=== PATIENT | female | born 1995 | race Caucasian/White ===

== ENCOUNTER → 2018-05-31 | Outpatient (CLI) | payer BC ==
[~2018-05-31] MED LIST: CATHETER FLUSH 10 ML SYR IV PRN
--- NOTE | 2018-05-31 20:03 | Diagnostic Imaging Report ---
INDICATION: Abdominal pain. TECHNIQUE: Acquisitions were acquired over the abdomen after the administration of 5.24 mCi of technetium 99m Choletec. After 60 minutes patient can of Ensure to evaluate the ejection fraction. FINDINGS: There is homogeneous uptake of isotope throughout the liver. There is significant accumulation within the gallbladder by 30 minutes. There is free flow of activity in the small bowel. The gallbladder ejection fraction is abnormally low at 17%. IMPRESSION: No evidence of cystic duct obstruction; however, there is an abnormally low ejection fraction of 17%. Dictated by: Dictated on workstation # [id number]
== END ==
LOC: CARD 12:01
PROVIDERS: ATTEND Family Medicine
DX: R10.11 Right upper quadrant pain (principal)
CPT/HCPCS: 78227

== ENCOUNTER 2018-06-05 10:40 | Outpatient (CLI) | payer BC ==
[~2018-06-05] VITALS: Ht 172.7 cm; Wt 91.6 kg
[2018-06-05] MEDS ORDERED: bcp PO (12:00)
[2018-06-06] MEDS ORDERED: ACHD5005 PO (12:22)
== END 2018-06-05 12:03 | disposition home or self-care (01) ==
LOC: PREOP 10:40
PROVIDERS: ATTEND Surgery
DX: Z01.818 Encounter for other preprocedural examination (principal)

== ENCOUNTER 2018-06-06 09:32 | Day surgery (SDC) | payer BC ==
[~2018-06-06] VITALS: Ht 172.7 cm; Wt 91.4 kg
[~2018-06-06 09:32] MED LIST changes: -CATHETER FLUSH 10 ML SYR IV PRN; +bcp PO
--- OUTSIDE RECORDS SUMMARY | 2018-06-06 09:35 | XMS REPORT ---
Author Author Fadumo Elizalde [facility] Address [address] [place], [place] [id number] Care Team Providers Care Kiln Car Unloader Name Role Phone Fadumo Elizalde PCP Unavailable Allergies and Adverse Reactions Name Reaction Notes PENICILLINS Plan of Treatment Planned Activity Comments Planned Date Planned Time Plan/Goal TSH 10/04/2016 12:00 AM Free thyroxine (FT4) measurement 10/04/2016 12:00 AM T3 TOTAL 10/04/2016 12:00 AM Medications Active Name Start Date Estimated Completion Date SIG Comments Generess Fe 0.8mg-25mcg(24) and 75 mg (4) oral tablet,chewable 04/07/201603/09 chew 1 tablet by oral route once daily for 84 days Name Start Date Expiration Date SIG Comments Zithromax Z-Lio 250 mg oral tablet 07/21/2015 07/25/2015 Take 2 tablets the first day followed by one tablet daily. Discontinued Name Start Date Discontinued Date SIG Comments Generess Fe 0.8mg-25mcg(24) and 75 mg (4) oral tablet,chewable 03/05/2014 Problem List Not available. Vital Signs Date Time BP-Sys(mm[Hg] BP-Rosa(mm[Hg]) HR(bpm) RR(rpm) Temp WT HT HC BMI BSA BMI Percentile O2 Sat(%) 03/05/2014 2:48:00 PM 120 mmHg 60 mmHg 70 bpm 18 rpm 99.6 F 124 lbs 68 in 18.85 kg/m2 1.64 m2 15.4 % Social History Name Description Comments Tobacco Never smoker No history of foreign travel History of Procedures Date Ordered Description Order Status 11/24/2015 12:00 AM ASSAY THYROID STIM HORMONE Reviewed 11/24/2015 12:00 AM ASSAY OF FREE THYROXINE Reviewed 11/24/2015 12:00 AM ASSAY TRIIODOTHYRONINE (T3) Reviewed 11/24/2015 12:00 AM THYROGLOBULIN ANTIBODY Reviewed 03/05/2014 12:00 AM CHLAMYDIA CULTURE Reviewed 03/05/2014 12:00 AM N.GONORRHOEAE DNA AMP PROB Reviewed 03/05/2014 12:00 AM ASSAY THYROID STIM HORMONE Reviewed 03/05/2014 12:00 AM COMPLETE CBC AUTOMATED Reviewed 03/05/2014 12:00 AM FREE ASSAY (FT-3) Reviewed 03/05/2014 12:00 AM ASSAY OF TOTAL THYROXINE Reviewed Results Summary Date and Description Results 03/05/2014 3:45 PM Triiodothyronine,Free,Serum 3.70 pg/mLTSH 1.10 uIU/mLT4 9.20 ug/dLWBC 6.1 RBC 4.41 HGB 13.60 g/dLHCT 37.80 %MCV 86.0 fLMCH 30.80 pgMCHC 36.0 g/dLRDW SD 40 MPV 8.90 fLPLT 288 History Of Immunizations Not available. History of Past Illness Name Date of Onset Comments *No known medical problems Routine gynecological examination Mar 05 2014 2:51PM Contraception, Oral Prescription Mar 05 2014 2:51PM Contraceptive Counseling Mar 05 2014 2:51PM Fatigue Mar 05 2014 2:51PM Fatigue Nov 24 2015 9:33AM Irregular intermenstrual bleeding Nov 24 2015 9:33AM Fatigue Oct 04 2016 10:04AM Payers Insurance Name Company Name Plan Name Plan Number Policy Number Policy Group Number Start Date [facility] [id number] N/A History of Encounters Visit Date Visit Type Provider 03/05/2014 Office visit 03/05/2014 Office visit Fadumo Elizalde CLOTH PATTERN MAKER
--- OUTSIDE RECORDS SUMMARY | 2018-06-06 09:36 | XMS REPORT ---
Author Author Fadumo Elizalde [facility] Address [address] [place], [place] [phone] Care Team Providers Care Manager Interventional Name Role Phone Fadumo Elizalde PCP Unavailable Allergies and Adverse Reactions Name Reaction Notes PENICILLINS Plan of Treatment Planned Activity Comments Planned Date Planned Time Plan/Goal ASSAY THYROID STIM HORMONE 11/24/2015 12:00 AM ASSAY OF FREE THYROXINE 11/24/2015 12:00 AM ASSAY TRIIODOTHYRONINE (T3) 11/24/2015 12:00 AM THYROGLOBULIN ANTIBODY 11/24/2015 12:00 AM Medications Active Name Start Date Estimated Completion Date SIG Comments Generess Fe 0.8mg-25mcg(24) and 75 mg (4) oral tablet,chewable 03/11/201503/2016 chew 1 tablet by oral route once [...] of Procedures Date Ordered Description Order Status 03/05/2014 12:00 AM CHLAMYDIA CULTURE Returned 03/05/2014 12:00 AM N.GONORRHOEAE DNA AMP PROB Returned 03/05/2014 12:00 AM ASSAY THYROID STIM HORMONE Returned 03/05/2014 12:00 AM COMPLETE CBC AUTOMATED Returned 03/05/2014 12:00 AM FREE ASSAY (FT-3) Returned 03/05/2014 12:00 AM ASSAY OF TOTAL THYROXINE Returned Results Summary Data and Description Results 03/05/2014 3:45 PM Triiodothyronine,Free,Serum 3.70 pg/mLTSH 1.10 uIU/mLT4 9.20 ug/dLWBC 6.1 RBC 4.41 HGB 13.60 g/dLHCT 37.80 %MCV 86.0 fLMCH 30.80 pgMCHC 36.0 g/dLMPV 8.90 fLPLT 288 History Of Immunizations Not available. History of Past Illness Name Date of Onset Comments *No known medical problems Routine gynecological examination Mar 05 2014 2:51PM Contraception, Oral Prescription Mar 05 2014 2:51PM Contraceptive Counseling Mar 05 2014 2:51PM Fatigue Mar 05 2014 2:51PM Fatigue Nov 24 2015 9:33AM Irregular intermenstrual bleeding Nov 24 2015 9:33AM Payers Insurance Name Company Name Plan Name Plan Number Policy Number Policy Group Number Start Date [facility] [id number] N/A History of Encounters Visit Date Visit Type Provider 03/05/2014 Office visit 03/05/2014 Office visit Fadumo Elizalde APRN
--- OUTSIDE RECORDS SUMMARY | 2018-06-06 09:36 | XMS REPORT ---
Author Author Fadumo Elizalde [facility] Address [address] [place], [place] [id number] Care Team Providers Care [place] Miner Blasting Name Role Phone Fadumo Elizalde PCP Unavailable [...] Policy Number Policy Group Number Start Date [facility] [id number] N/A History of Encounters Visit Date Visit Type Provider 03/05/2014 Office visit 03/05/2014 Office visit Fadumo Elizalde APRN
--- OUTSIDE RECORDS SUMMARY | 2018-06-06 09:36 | XMS REPORT | Continuity of Care Document ---
Author Author [facility] Organization [facility] Address Unknown Phone Unavailable Allergies Active Description Code Type Severity Reaction Onset Reported/Identified Relationship to Patient Clinical Status Yes PENICILLINS UNKNOWN UNKNOWN Yes No Allergy Information Available [id number] Drug Allergy Unknown N/A 2018 Yes Penicillins [id number] Drug Allergy Unknown RASH 06/05/2018 Medications Medication Packaging Start Date Stop Date Route Dosage Sig ONDANSETRON VIAL INJ 4 MG/2CC (ZOFRAN 2CC VIAL) MG 05/18/2018 05/18/2018 PRN ONCE FENTANYL INJ 100 MCG/2CC VIAL MCG 05/19/2018 05/19/2018 ONCE&0012 NORMAL SALINE 1000CC IV BAG INJ 0.9 % (NS 1000CC IV BAG) ml 05/19/2018 06/03/2018 CONTINUOUSEVERY 0 Hour SUCRALFATE SUSP 1 GM/10CC (CARAFATE SUSP) GM 05/19/2018 05/25/2018 Q6H&0600,1200,1800,2359 FAMOTIDINE TAB 20 MG (PEPCID) MG 05/25/2018 BID&0800,2000 Problems Date Dx Coded Attending Type Code Diagnosis Diagnosed By 05/18/2018 Marlen Kwok 789.01 ABDOMINAL PAIN, RIGHT UPPER QUADRANT 05/18/2018 Marlen Kwok R10.11 RIGHT UPPER QUADRANT PAIN 05/18/2018 Marlen Kwok 789.01 ABDOMINAL PAIN, RIGHT UPPER QUADRANT 05/18/2018 Marlen Kwok R10.11 RIGHT UPPER QUADRANT PAIN 05/19/2018 SANDY ROY 535.0 ACUTE GASTRITIS 05/19/2018 SANDY ROY 535.00 ACUTE GASTRITIS, WITHOUT MENTION OF HEMORRHAGE 05/19/2018 SANDY ROY A09 INFECTIOUS GASTROENTERITIS AND COLITIS, UNSPECIFIED 05/19/2018 SANDY ROY K29.00 ACUTE GASTRITIS WITHOUT BLEEDING 06/01/2018 MARLEN KWOK MD, Ot R10.11 RIGHT UPPER QUADRANT PAIN Procedures There is no data. Results Test Result Range Urinalysis - 04/07/17 16:29 Icotest N/A Negative Urine Crystals Amorphous material: moderate/HPF Urine Volume Urine Volume Sufficient (10mL) Urine-Appearance Clear Clear Urine-Bacteria 3+ Urine-Bilirubin Negative Negative Urine-Blood Trace-lysed Negative Urine-Color Yellow Colorless-Lt. Yellow Urine-Epithelial Cells 5-10/HPF Urine-Glucose Negative Negative Urine-Ketones Negative Negative Urine-Leukocytes Trace Negative Urine-Nitrite Negative Negative Urine-Other Urine Saved if Culture Needed (48hrs from time of collection) Urine-pH 6.0 5-8.5 Urine-Protein Negative Negative Urine-RBC 0-2/HPF Urine-Specific [place] 1.020 1.000-1.030 Urine-WBC 2-5/HPF Urobilinogen 0.2 0.2-1.0 Comprehensive Metabolic Panel - 05/18/18 14:23 Albumin 4.9 g/dL 3.6-5.1 ALP 97 U/L 35-130 ALT 97 U/L 6-45 Anion Gap 14 6-14 AST 82 U/L 2-40 BUN 9 mg/dL 5-25 Calcium 10.1 mg/dL 8.3-10.4 Chloride 106 mmol/L 95-114 CO2 24 mEq/L 22-33 Creat 0.85 mg/dL 0.50-1.50 eGFR 83 mL/min/1.73m2 >59 Globulin 2.4 g/dL 2.3-3.5 Glucose 86 mg/dL 70-110 Osmo 287 280-295 Potassium 4.2 mmol/L 3.5-5.3 Sodium 140 mmol/L 134-148 TBil 0.9 mg/dL 0.2-1.2 TP 7.3 g/dL 6.0-8.3 Urinalysis - 05/18/18 14:49 Icotest N/A Negative Urine Volume Urine Volume Sufficient (10mL) Urine-Appearance Clear Clear Urine-Bacteria Trace Urine-Bilirubin Negative Negative Urine-Blood Trace-intact Negative Urine-Color Yellow Colorless-Lt. Yellow Urine-Epithelial Cells 0-5/HPF Urine-Glucose Negative Negative Urine-Ketones 1+ Negative Urine-Leukocytes Negative Negative Urine-Nitrite Negative Negative Urine-Other Urine Saved if Culture Needed (48hrs from time of collection) Urine-pH 5.5 5-8.5 Urine-Protein Negative Negative Urine-RBC Rare/HPF Urine-Specific [place] >=1.030 1.000-1.030 Urine-WBC Negative Urobilinogen 0.2 E.U./dL 0.2-1.0 Amylase - 05/18/18 23:55 Amylase 54 U/L 20-100 Lipase - 05/18/18 23:55 Lipase 25 U/L 7-59 Quik Strep - 05/19/18 00:30 Quik Strep Negative - confirmation culture set. Negative Encounters ACCT No. Visit Date/Time Discharge Status Pt. Type Provider Facility Loc./Unit Complaint [id number] 03/05/2014 15:37:16 03/05/2014 23:59:59 CLS Outpatient Fadumo Elizalde [id number] 06/05/2018 10:40:00 06/05/2018 12:03:00 DIS Outpatient HERNAN ANDERSON MD Via [facility] [place] PREOP ROBO ANN MARIE [id number] 05/31/2018 12:01:00 05/31/2018 23:59:59 CLS Outpatient MARLEN KWOK MD Via [facility] [place] CARD RUQ PAIN [id number] 06/06/2018 11:00:00 PEN Preadmit HERNAN ANDERSON MD Via [facility] GALLBLADDER DYSKENESIA [id number] 05/18/2018 23:35:00 05/19/2018 01:45:00 DIS Outpatient [facility] ER [id number] 05/18/2018 14:19:00 05/18/2018 23:59:00 DIS Outpatient Marlen Kwok [id number] 04/07/2017 16:27:00 04/07/2017 23:59:00 DIS Outpatient Marlen Kwok [id number] 05/19/2018 00:13:14 Document Registration
[2018-06-06] MEDS ORDERED: VANCOMYCIN INJECTION 1,000 MG in NS (IVPB) 250 ML IV ONE (09:45)
[2018-06-06] MEDS ORDERED: LACTATED RINGERS 1,000 ML IV PRN (09:50)
[2018-06-06] MEDS ORDERED: FAMOTIDINE 20MG/2ML IV (PEPCID) IV ONE (10:00)
[2018-06-06] MEDS ORDERED: MIDAZOLAM 2 MG/2 ML (VERSED) VIAL IV ONE (10:00)
[2018-06-06 10:05] VITALS: BP 137/89
[2018-06-06] MEDS ORDERED: BUP/EPI 0.5% 1:200,000 (SENSORCAINE) 30 ML VIAL ONE (10:41)
[2018-06-06] MEDS ORDERED: ROCURONIUM 10 MG/ML 5 ML SYRINGE IV ONE (10:42)
[2018-06-06] MEDS ORDERED: fentaNYL INJECTION 100 MCG/2 ML AMP ONE ×3 (10:42→12:35)
[2018-06-06] MEDS ORDERED: SEVOFLURANE (ULTANE) 15 ML INHAL SOLN ONE ×5 (10:42→12:33)
[2018-06-06] MEDS ORDERED: proPOfol 200 MG/20 ML (DIPRIVAN) VIAL IV ONE (10:42)
--- NOTE | 2018-06-06 11:02 | Progress Note-Pre Operative ---
Pre-Operative Progress Note H&P Reviewed The H&P was reviewed, patient examined and no changes noted. Date Seen by Provider: Jun 04, 2018 Time Seen by Provider: 15:00 Date H&P Reviewed: Jun 06, 2018 Time H&P Reviewed: 11:02 Pre-Operative Diagnosis: gallbladder dyskinesia HERNAN ANDERSON MD Jun 06, 2018 11:02
[2018-06-06] MEDS ORDERED: ONDANSETRON 4 MG/2 ML (SDV) Z0FRAN ONE (11:58)
[2018-06-06] MEDS ORDERED: DEXAMETHASONE 10 MG/ML (DECADRON) 1 ML VIAL ONE (11:58)
[2018-06-06] MEDS ORDERED: LIDOCAINE PF 2% 5 ML (XYLOCAINE) VIAL ONE (11:59)
[2018-06-06] MEDS ORDERED: GLYCOPYRROLATE 0.2 MG/ML (ROBINUL) 2 ML VIAL ONE ×2 (12:03→12:07)
[2018-06-06] MEDS ORDERED: NEOSTIGMINE 1 MG/ML 5 ML SYRINGE ONE (12:03)
--- NOTE | 2018-06-06 12:21 | Operative Report ---
Operative Report Date of Procedure/Surgery Jun 06, 2018 Surgeon (s) HERNAN ANDERSON MD Deburrer (s): N/A Post-Operative Diagnosis same Procedure Performed robotic-assisted cholecystectomy Description of Procedure Anesthesia Type: General Estimated blood loss (mL): minimal Specimen(s) collected/removed gallbladder Description of the Procedure Indication for the procedure: This lady presented with severe symptoms of biliary colic due to chronic, acalculous cholecystitis and dyskinesia of the gallbladder with a much reduced ejection fraction. She was therefore offered cholecystectomy using minimally invasive technique with robotic assistance. Informed consent was obtained after reviewing the operative details and complications of wound infection and bile leak. Description of the procedure: She was placed supine on the operative table and general anesthesia induced. A gram of vancomycin was administered intravenously as prophylaxis at sequential compression devices were placed around her legs, to minimize the risk of venous thrombosis. Abdomen was prepared and draped in the usual sterile manner. Pneumoperitoneum was established using a Veress needle introduced along the subumbilical region. Intra-abdominal pressure was maintained at 15 mmHg, using carbon dioxide insufflation. A 12 mm trocar was placed and anatomy visualized using the 30, 3 -dimensional laparoscope, associated da Tammie system. Under direct view, I placed an 8 mm trocar over each side of the abdomen, followed by a 5 mm trocar over the left subcostal margin. The patient was then turned in reverse Trendelenburg position and the robotic system docked in place. The fundus of the gallbladder was retracted cephalad and the infundibulum grasped with Cadiere forceps. Peritoneum overlying Calot's triangle was incised using hook cautery, delineating the cystic duct and artery. Both were controlled using locking clips. Cholecystectomy was then completed using the hook cautery. The gallbladder was then placed in an Endo Catch bag and removed via the subumbilical trocar site. The fascia over this incision was closed using #1 Vicryl, using the Darrick Elizalde device, under direct laparoscopic view. Skin incisions were closed using 4-0 Vicryl, in a subcuticular fashion. 0.5 percent Marcaine with epinephrine was infiltrated along the incisions, both preemptively and at the conclusion of the operation. She tolerated the procedure well, was extubated in the operative room and taken to the recovery room in a stable condition. Findings of the Procedure see operative report Allergies and Home Medications Allergies Coded Allergies: Penicillins (Verified Allergy, Unknown, RASH, 06/05/18) Home Medications [bcp] , 1 TAB PO DAILY, (Reported) Patient Home Medication List Home Medication List Reviewed: Yes HERNAN ANDERSON MD Jun 06, 2018 12:21
[2018-06-06] MEDS ORDERED: ACHD5005 PO (12:22)
--- NOTE | 2018-06-06 12:24 | Discharge Inst-Simple/Standard ---
Discharge Inst-Standard Discharge Medications New, Converted or Re-Newed RX: RX on Chart Patient Instructions/Follow Up Plan of Care/Instructions/FU: Band-Aids off in 48 hours. Incentive spirometry. Follow-up in 3 weeks Activity as Tolerated: Yes Discharge Diet: No Restrictions HERNAN ANDERSON MD Jun 06, 2018 12:24
[2018-06-06] MEDS ORDERED: MEPERIDINE (DEMEROL) INJ 50 MG/ML IVP ONE (12:45)
[2018-06-06] MEDS ORDERED: fentaNYL INJECTION 100 MCG/2 ML AMP IVP ONE (12:45)
[2018-06-06] MEDS ORDERED: ONDANSETRON 4 MG/2 ML (SDV) Z0FRAN IVP PRN (12:45)
[2018-06-06] MEDS ORDERED: PROMETHAZINE INJ 25 MG/ML (PHENERGAN) AMP IVP ONE (12:45)
[2018-06-06] MEDS ORDERED: KETOROLAC 30 MG/ML VIAL ONE (12:57)
[2018-06-06] MEDS ORDERED: HYDROmorphone 2 MG/ML VIAL (DILAUDID) ONE (12:57)
[2018-06-06] MEDS ORDERED: HYDROmorphone 2 MG/ML VIAL (DILAUDID) IV ONE (13:00)
[2018-06-06] MEDS ORDERED: KETOROLAC 30 MG/ML VIAL IVP ONE (13:00)
[2018-06-06 13:34] VITALS: BP 122/79
[2018-06-06] MEDS ORDERED: HYDROcodone/APAP 5 MG/325 MG (LORTAB) TAB ONE (13:49)
[2018-06-06 14:04] VITALS: BP 139/85
[2018-06-06] MEDS ORDERED: HYDROcodone/APAP 5 MG/325 MG (LORTAB) TAB PO ONE (14:15)
--- NOTE | 2018-06-06 14:19 | Anesthesia-General Post-Op ---
General Patient Condition Mental Status/LOC: Same as Preop Cardiovascular: Satisfactory Nausea/Vomiting: Absent Respiratory: Satisfactory Pain: Controlled Complications: Absent Post Op Complications Complications None Follow Up Care/Instructions Patient Instructions None needed. Anesthesia/Patient Condition Patient Condition Patient is doing well, no complaints, stable vital signs, no apparent adverse anesthesia problems. No complications reported per nursing. D/C home per [facility] Criteria: Yes BRANT ANDRADE CRNA Jun 06, 2018 14:19
[2018-06-06 14:34] VITALS: BP 128/78
[2018-06-06 14:45] VITALS: BP 128/78
== END 2018-06-06 14:45 | disposition home or self-care (01) ==
LOC: SDC 09:32
PROVIDERS: ATTEND Surgery
DX: K81.1 Chronic cholecystitis (principal); K82.8 Other specified diseases of gallbladder; K21.9 Gastro-esophageal reflux disease without esophagitis; Z11.2 Encounter for screening for other bacterial diseases; Z88.0 Allergy status to penicillin
CPT/HCPCS: 84703; 87081; 88304

== ENCOUNTER 2018-10-23 05:31 | Outpatient (CLI) | payer BC ==
[~2018-10-23] VITALS: Ht 172.7 cm; Wt 86.4 kg
[~2018-10-23 05:31] MED LIST changes: +ACHD5005 PO
[2018-10-24] MEDS ORDERED: IBUP-1773 PO (07:07)
[2018-10-24] MEDS ORDERED: HYDR-4226 PO (07:07)
== END 2018-10-23 11:05 | disposition home or self-care (01) ==
LOC: PREOP 05:31
PROVIDERS: ATTEND Obstetrics & Gynecology
DX: Z01.818 Encounter for other preprocedural examination (principal)

== ENCOUNTER 2018-10-24 06:06 | Day surgery (SDC) | payer BC ==
[~2018-10-24] VITALS: Ht 172.7 cm; Wt 84.5 kg
[2018-10-24] VITALS (11 sets, daily range): BP systolic 90–131; BP diastolic 49–84
--- OUTSIDE RECORDS SUMMARY | 2018-10-24 06:10 | XMS REPORT | Continuity of Care Document ---
Author Organization Unknown Address Unknown Allergies Active Description Code Type Severity Reaction Onset Reported/Identified Relationship to Patient Clinical Status Yes PENICILLINS UNKNOWN UNKNOWN Yes No Allergy Information Available [id number] Drug Allergy Unknown N/A 05/31/2018 Yes Penicillins [id number] Drug Allergy Unknown RASH 06/05/2018 Medications Medication [...] Q6H&0600,1200,1800,2359 FAMOTIDINE TAB 20 MG (PEPCID) MG 05/19/2018 05/25/2018 BID&0800,2000 Problems Date Dx Coded Attending [...] GASTRITIS, WITHOUT MENTION OF HEMORRHAGE 05/19/2018 SANDY RYO A09 INFECTIOUS GASTROENTERITIS AND COLITIS, UNSPECIFIED 05/19/2018 SANDY ROY K29.00 ACUTE GASTRITIS WITHOUT BLEEDING 06/01/2018 RISSA GALE, MARLEN Barajas Ot R10.11 RIGHT UPPER QUADRANT PAIN 06/05/2018 HERNAN ANDERSON MD Ot Z01.818 ENCOUNTER FOR OTHER PREPROCEDURAL EXAMIN 06/06/2018 HERNAN ANDERSON MD Ot K21.9 GASTRO-ESOPHAGEAL REFLUX DISEASE WITHOUT 06/06/2018 HERNAN ANDERSON MD Ot K81.1 CHRONIC CHOLECYSTITIS 06/06/2018 HERNAN ANDERSON MD Ot K82.8 OTHER SPECIFIED DISEASES OF GALLBLADDER 06/06/2018 HERNAN ANDERSON MD Ot Z11.2 ENCOUNTER FOR SCREENING FOR OTHER BACTER 06/06/2018 HERNAN ANDERSON MD Ot Z88.0 ALLERGY STATUS TO PENICILLIN 06/12/2018 HERNAN ANDERSON MD, Ot K21.9 GASTRO-ESOPHAGEAL REFLUX DISEASE WITHOUT 06/12/2018 HERNAN ANDERSON MD, Ot K81.1 CHRONIC CHOLECYSTITIS 06/12/2018 HERNAN ANDERSON MD Ot K82.8 OTHER SPECIFIED DISEASES OF GALLBLADDER 06/12/2018 HERNAN ANDERSON MD, Ot Z11.2 ENCOUNTER FOR SCREENING FOR OTHER BACTER 06/12/2018 HERNAN ANDERSON MD, Ot Z88.0 ALLERGY STATUS TO PENICILLIN 06/13/2018 RISSA GALE, MARLEN Barajas Ot R10.11 RIGHT UPPER QUADRANT PAIN Procedures [...] 5-8.5 Urine-Protein Negative Negative Urine-RBC 0-2/HPF Urine-Specific [place] 1.020 1.000-1.030 Urine-WBC 2-5/HPF Urobilinogen 0.2 0.2-1.0 [...] 5-8.5 Urine-Protein Negative Negative Urine-RBC Rare/HPF Urine-Specific [place] >=1.030 1.000-1.030 Urine-WBC Negative Urobilinogen 0.2 E.U./dL 0.2-1.0 Amylase - 05/18/18 23:55 Amylase 54 U/L 20-100 Lipase - 05/18/18 23:55 Lipase 25 U/L 7-59 Quik Strep - 05/19/18 00:30 Quik Strep Negative - confirmation culture set. Negative Urine beta human chorionic gonadotropin (hCG) measurement - 06/06/18 09:41 Urine beta human chorionic gonadotropin (hCG) measurement NEGATIVE NEGATIVE Methicillin resistant Staphylococcus aureus (MRSA) screening culture - 06/06/18 10:08 Methicillin resistant Staphylococcus aureus (MRSA) screening culture NEG NRG Encounters ACCT No. Visit Date/Time Discharge Status Pt. Type Provider Facility Loc./Unit Complaint [id number] 03/05/2014 15:37:16 03/05/2014 23:59:59 CLS Outpatient Fadumo Elizalde [id number] 06/06/2018 09:32:00 06/06/2018 14:45:00 DIS Outpatient MONICA GALE, HERNAN Fraire [facility] GALLBLADDER DYSKENESIA [id number] 06/05/2018 10:40:00 06/05/2018 12:03:00 DIS Outpatient MONICA GALE, HERNAN Fraire [facility] PREOP ROBO ANN MARIE [id number] 05/31/2018 12:01:00 05/31/2018 23:59:59 CLS Outpatient MARLEN KWOK MD [facility] CARD RUQ PAIN [id number] 10/24/2018 07:30:00 PEN Preadmit MARCUS DO, ALEXANDRE S [facility] [place] [id number] 05/18/2018 23:35:00 05/19/2018 01:45:00 DIS Outpatient [facility] ER [id number] 05/18/2018 14:19:00 05/18/2018 23:59:00 DIS Outpatient Marlen Kwok [id number] 04/07/2017 16:27:00 04/07/2017 23:59:00 DIS Outpatient Marlen Kwok [id number] 05/19/2018 00:13:14 Document Registration
[2018-10-24] MEDS: LACTATED RINGERS 1,000 ML IV PRN ×2 (06:39→07:34)
[2018-10-24] MEDS ORDERED: ONDANSETRON 4 MG/2 ML (SDV) Z0FRAN ONE (06:42)
[2018-10-24] MEDS ORDERED: fentaNYL INJECTION 100 MCG/2 ML AMP ONE ×2 (06:42→07:38)
[2018-10-24] MEDS ORDERED: proPOfol 200 MG/20 ML (DIPRIVAN) VIAL IV ONE (06:42)
[2018-10-24] MEDS ORDERED: DEXAMETHASONE 10 MG/ML (DECADRON) 1 ML VIAL ONE (06:42)
[2018-10-24] MEDS ORDERED: LIDOCAINE PF 2% 5 ML (XYLOCAINE) VIAL ONE (06:42)
[2018-10-24 06:45] LABS: BASOPHILS % (AUTO) 0 % (0-10); EOSINOPHILS # (AUTO) 0.2 10^3/uL (0.0-0.3); EOSINOPHILS % (AUTO) 2 % (0-10); HEMATOCRIT 34 % (35-52); HEMOGLOBIN 11.5 G/DL (11.5-16.0); LYMPHOCYTES # (AUTO) 4.1 X 10^3 (1.0-4.0); LYMPHOCYTES % (AUTO) 41 % (12-44); MEAN CORPUSCULAR HEMOGLOBIN 29 PG (25-34); MEAN CORPUSCULAR HGB CONC 34 G/DL (32-36); MEAN CORPUSCULAR VOLUME 84 FL (80-99); MEAN PLATELET VOLUME 9.3 FL (7.4-10.4); MONOCYTES # (AUTO) 0.6 X 10^3 (0.0-1.0); MONOCYTES % (AUTO) 6 % (0-12); NEUTROPHILS # (AUTO) 5.2 X 10^3 (1.8-7.8); NEUTROPHILS % (AUTO) 52 % (42-75); PLATELET COUNT 350 10^3/uL (130-400); RED CELL DISTRIBUTION WIDTH 12.3 % (10.0-14.5); WHITE BLOOD COUNT 10.1 10^3/uL (4.3-11.0)
[2018-10-24] MEDS ORDERED: SEVOFLURANE (ULTANE) 15 ML INHAL SOLN ONE ×2 (06:45→08:13)
[2018-10-24] MEDS ORDERED: MIDAZOLAM 2 MG/2 ML (VERSED) VIAL IV ONE (06:45)
[2018-10-24] MEDS ORDERED: MIDAZOLAM 2 MG/2 ML (VERSED) VIAL ONE (06:52)
[2018-10-24] MEDS ORDERED: D5 LR IV SOLUTION 1,000 ML IV SCH (07:04)
--- NOTE | 2018-10-24 07:05 | Progress Note-Pre Operative ---
Pre-Operative Progress Note H&P Reviewed The H&P was reviewed, patient examined and no changes noted. Date Seen by Provider: Oct 24, 2018 Time Seen by Provider: 07:00 Date H&P Reviewed: Oct 24, 2018 Time H&P Reviewed: 07:00 Pre-Operative Diagnosis: Missed ALEXANDRE REZA DO Oct 24, 2018 07:05
[2018-10-24] MEDS ORDERED: HYDR-4226 PO (07:07)
[2018-10-24] MEDS ORDERED: IBUP-1773 PO (07:07)
--- NOTE | 2018-10-24 07:08 | Discharge Inst-Women's Service ---
Discharge Inst-Women's Serv Depart Medication/Instructions New, Converted or Re-Newed RX: RX on Chart Consults/Follow Up Additional Follow Up: Yes Orders/Referrals Dr. Velazquez in 2 weeks Activity Activity: Activity as Tolerated Driving Instructions: You May Drive NO SMOKING: NO SMOKING Nothing Inside Vagina: No Douching, No [place], No Tampons Diet Discharge Diet: No Restrictions Symptoms to Report to : Bleeding Excessive, Pain Increased, Fever Over 101 Degrees F, Vaginal Bleeding Increase, Questions/Concerns For Any Problems or Questions: Contact Your Physician ALEXANDRE VELAZQUEZ DO Oct 24, 2018 07:08
[2018-10-24] MEDS ORDERED: KETOROLAC 30 MG/ML VIAL IVP ONE (07:15)
[2018-10-24] MEDS ORDERED: ONDANSETRON 4 MG/2 ML (SDV) Z0FRAN IVP PRN ×2 (07:15→08:15)
[2018-10-24] MEDS ORDERED: HYDROcodone/APAP 5 MG/325 MG (LORTAB) TAB PO PRN (07:15)
[2018-10-24] MEDS ORDERED: PROMETHAZINE INJ 25 MG/ML (PHENERGAN) AMP ONE (08:09)
[2018-10-24] MEDS ORDERED: HYDROmorphone 2 MG/ML VIAL (DILAUDID) IV ONE (08:15)
[2018-10-24] MEDS ORDERED: morphine INJ 10 MG/ML 1ML (SYR OR VIAL) IVP ONE (08:15)
[2018-10-24] MEDS ORDERED: PROMETHAZINE INJ 25 MG/ML (PHENERGAN) AMP IVP ONE (09:30)
--- NOTE | 2018-10-24 10:55 | Anesthesia-General Post-Op ---
General Patient Condition Mental Status/LOC: Same as Preop Cardiovascular: Satisfactory Nausea/Vomiting: Absent Respiratory: Satisfactory Pain: Controlled Complications: Absent Post Op Complications Complications None Follow Up Care/Instructions Patient Instructions None needed. Anesthesia/Patient Condition Patient Condition Patient is doing well, no complaints, stable vital signs, no apparent adverse anesthesia problems. No complications reported per nursing. APRIL MARIE CRNA Oct 24, 2018 10:55
--- NOTE | 2018-10-24 13:19 | OPERATIVE REPORT ---
DATE OF SERVICE: 10/24/2018 PREOPERATIVE DIAGNOSIS: A 23-year-old female with missed AB. POSTOPERATIVE DIAGNOSIS: A 23-year-old female with missed AB. PROCEDURE: Suction D and C. SURGEON: Alexandre Velazquez DO ANESTHESIA: General endotracheal. ESTIMATED BLOOD LOSS: 200 mL. URINE OUTPUT: 200 mL clear drained at the start of the procedure. FLUIDS: 1100 mL lactated Ringer's solution. FINDINGS: A small to moderate amount of products of conception, grossly normal appearing external female genitalia. SPECIMEN SENT: Products of conception. INDICATION FOR PROCEDURE: This is a 23-year-old female, who is the patient that had sought care in my office and was found to have a missed AB with a suspected blighted ovum. There was an inappropriate drop and quantitative beta hCG progesterone level was also below 5. Due to that as well as a verified intrauterine without any suggestion of a pole on ultrasound, I discussed with the patient waiting until a spontaneous miscarriage should occur or proceed with suction D and C. Risks of both were discussed with the patient in detail. After all her questions were answered, consent was obtained in the preoperative area and the patient was taken to the operating room. OPERATIVE REPORT IN DETAIL: Once in the operating room, anesthesia was found to be adequate. She was placed in dorsal lithotomy position, prepped and draped in normal sterile fashion. A timeout was performed. The bladder was then drained using straight catheterization. Weighted speculum was inserted into the patient's vagina. A right angle retractor was used to visualize the cervix, which was grasped at 12 o'clock position using a long Allis clamp. I then gently sounded the uterine cavity depth and it was found to be 8 cm. I selected an 8 rigid Cass suction curette and then gently dilated the cervix using Hegar dilators to allow placement of the suction curette. Once I am able to place the curette, I attached the Cass suction device and activated the device. A suction pressure of 60 mmHg was noted. Once that was done, I methodically rotated the suction curette and cleared the endometrial contents of the uterus. I did this on several passes followed by a gentle sharp curette of the endometrium and then finally I took one last pass with the suction curette after which bleeding is noted to be minimal. All other instruments were removed from the patient's vagina. Lap and sponge counts were correct at the end of the procedure. Instrument counts were correct as well. The patient tolerated the procedure well and was taken to recovery area in stable condition. Job ID: [id number] DocumentID: [id number] Dictated Date: 10/24/2018 08:29:15 [employer] Date: 10/24/2018 13:19:19 Dictated By: ALEXANDRE VELAZQUEZ DO
== END 2018-10-24 10:30 | disposition home or self-care (01) ==
LOC: SDC 06:06
PROVIDERS: ATTEND Obstetrics & Gynecology
DX: O02.1 Missed abortion (principal); Z88.0 Allergy status to penicillin
CPT/HCPCS: 36415; 85025; 86850; 86900; 86901; 87081; 94664

== ENCOUNTER → 2019-06-26 | Outpatient (CLI) | payer BC ==
[~2019-06-26] MED LIST changes: +HYDR-4226 PO; +IBUP-1773 PO
--- NOTE | 2019-06-26 16:52 | Diagnostic Imaging Report ---
INDICATION: anatomy survey. TECHNIQUE: Multiple real-time grayscale images were obtained over the gravid uterus. COMPARISON: None FINDINGS: Cervix measures approximately 5.5 cm in length. There is no placenta previa. The placenta is posterior in position. Fetus is in cephalic presentation. Maternal adnexa are not well evaluated due to advanced gestational age. Following structures are seen and normal: Four-chamber heart, urinary bladder, three-vessel cord, umbilical cord insertion, cerebral ventricles, cerebellum, cisterna magna, spine, and stomach. Biometrical measurements are as follows: Biparietal 4.98 cm, age 21 weeks 1 days. Head circumference 18.79 cm, age 21 weeks 1 days. Abdominal circumference 15.69 cm, age 20 weeks 6 days. Femur length 3.3 cm, age 20 weeks 2 days. Sonographic estimate age: 20 weeks 6 days. Sonographic estimated date of delivery: 11/07/2019. Estimated Weight: 367 gm (+/- 54 gm). LMP percentile: 27%. heart rate: 161 beats per minute. number: 1 of 1. IMPRESSION: 1. Single live intrauterine with normal survey. 2. Estimated gestational age is 20 weeks and 6 days giving a due date of 11/07/2019. Dictated by: Dictated on workstation # [id number]
== END ==
LOC: RAD 15:03
PROVIDERS: ATTEND Obstetrics & Gynecology
DX: Z34.92 Encounter for supervision of normal pregnancy, unspecified, second trimester (principal); Z3A.20 20 weeks gestation of pregnancy
CPT/HCPCS: 76805

== ENCOUNTER 2019-07-13 11:07 | Emergency (ER) | payer BC ==
[~2019-07-13] VITALS: Ht 172 cm; Wt 82.0 kg
--- NOTE | 2019-07-13 11:24 | ED General ---
General Stated Complaint: SOA / VOMITING - 23 WKS PREG Source of Information: Patient Exam Limitations: No Limitations History of Present Illness Date Seen by Provider: Jul 13, 2019 Time Seen by Provider: 11:20 Initial Comments ER with reports of shortness of breath and vomiting. She had a slight runny nose for the past 3 days, no fevers at any time. This morning she awakened and noticed her throat/neck to be sore in the front but no difficulty swallowing. She's had a cough which worsens the pain in her throat when she cough. Cough is nonproductive. She vomited once this morning. She had some shortness of breath upon awakening but that seems better now she just has pain in her throat and breathing. No unilateral leg swelling. No travel in the past 2 weeks. 23 weeks gestation. Timing/Duration: 1-2 Days Severity: Moderate Associated Systoms: Cough; No Fever/Chills, No Headaches; Nausea/Vomiting, Shortness of Air Allergies and Home Medications Allergies Coded Allergies: Penicillins (Verified Allergy, Mild, RASH, 10/23/18) Home Medications Hydrocodone/Acetaminophen 1 Each Tablet, 1 TAB PO Q4-6HR Prescribed by: ALEXANDRE VELAZQUEZ on 10/24/18 0707 Ibuprofen 600 Mg Tablet, 600 MG PO Q6H Prescribed by: ALEXANDRE VELAZQUEZ on 10/24/18 07 [bcp] , 1 TAB PO DAILY, (Reported) Patient Home Medication List Home Medication List Reviewed: Yes Review of Systems Review of Systems Constitutional: see HPI; No chills, No fever EENTM: see HPI, throat pain Respiratory: cough, short of breath Cardiovascular: no symptoms reported Genitourinary: no symptoms reported Musculoskeletal: no symptoms reported Skin: no symptoms reported Psychiatric/Neurological: No Symptoms Reported Hematologic/Lymphatic: No Symptoms Reported Past Vljyqcr-Uqxmeo-Mgaitb Hx Patient Social History Alcohol Beverage of Choice: Wine 2nd Hand Smoke Exposure: No Recent Foreign Travel: No Contact w/Someone Who Travel: No Recent Hopitalizations: No Immunizations Up To Date Date of Influenza Vaccine: Jan 29, 2018 Seasonal Allergies Seasonal Allergies: No Past Medical History Surgeries: Yes (wisdom teeth, R shoulder sx) Gallbladder Respiratory: No Cardiac: No Neurological: No Genitourinary: No Gastrointestinal: No Gall Bladder Disease Musculoskeletal: No Endocrine: No HEENT: Yes (GLASSES) Loss of Vision: Denies Hearing Impairment: Denies Cancer: No Psychosocial: No Integumentary: No Blood Disorders: No Adverse Reaction/Blood Tranf: No (N/A) Physical Exam Vital Signs Capillary Refill : Height, Weight, BMI Height: 5'8.00" Weight: 186lbs. 6.0oz. 84.117218hg; 28.3 BMI Method: General Appearance: No Apparent Distress, WD/WN Eyes: Bilateral Eye Normal Inspection, Bilateral Eye PERRL, Bilateral Eye EOMI HEENT: PERRL/EOMI, TMs Normal Neck: Full Range of Motion, Normal Inspection; No Lymphadenopathy (L), No Lymphadenopathy (R) Respiratory: Normal Breath Sounds, No Accessory Muscle Use, No Respiratory Distress; No Crackles, No Wheezing Cardiovascular: Normal Peripheral Pulses, Tachycardia Gastrointestinal: Normal Bowel Sounds, Non Tender, Soft Extremity: Normal Capillary Refill, Normal Inspection Neurologic/Psychiatric: Alert, Oriented x3 Skin: Normal Color, Warm/Dry Progress/Results/Core Measures Suspected Sepsis SIRS Temperature: Pulse: Respiratory Rate: Laboratory Tests 07/13/19 11:20: White Blood Count 10.8 Blood Pressure / Mean: Laboratory Tests 07/13/19 11:20: Platelet Count 266 Results/Orders Lab Results Laboratory Tests Test 07/13/19 11:20 Range/Units White Blood Count 10.8 4.3-11.0 10^3/uL Red Blood Count 3.54 L 4.35-5.85 10^6/uL Hemoglobin 10.9 L 11.5-16.0 G/DL Hematocrit 31 L 35-52 % Mean Corpuscular Volume 89 80-99 FL Mean Corpuscular Hemoglobin 31 25-34 PG Mean Corpuscular Hemoglobin Concent 35 32-36 G/DL Red Cell Distribution Width 13.2 10.0-14.5 % Platelet Count 266 130-400 10^3/uL Mean Platelet Volume 9.0 7.4-10.4 FL Neutrophils (%) (Auto) 60 42-75 % Lymphocytes (%) (Auto) 34 12-44 % Monocytes (%) (Auto) 4 0-12 % Eosinophils (%) (Auto) 1 0-10 % Basophils (%) (Auto) 0 0-10 % Neutrophils # (Auto) 6.5 1.8-7.8 X 10^3 Lymphocytes # (Auto) 3.7 1.0-4.0 X 10^3 Monocytes # (Auto) 0.4 0.0-1.0 X 10^3 Eosinophils # (Auto) 0.1 0.0-0.3 10^3/uL Basophils # (Auto) 0.0 0.0-0.1 10^3/uL Urine Color YELLOW Urine Clarity CLEAR Urine pH 6.5 5-9 Urine Specific [place] 1.015 L 1.016-1.022 Urine Protein NEGATIVE NEGATIVE Urine Glucose (UA) NEGATIVE NEGATIVE Urine Ketones TRACE H NEGATIVE Urine Nitrite NEGATIVE NEGATIVE Urine Bilirubin NEGATIVE NEGATIVE Urine Urobilinogen 0.2 < = 1.0 MG/DL Urine Leukocyte Esterase 1+ H NEGATIVE Urine RBC (Auto) NEGATIVE NEGATIVE Urine RBC 0-2 /HPF Urine WBC 2-5 /HPF Urine Squamous Epithelial Cells 25-50 H /HPF Urine Crystals NONE /LPF Urine Bacteria MODERATE H /HPF Urine Casts NONE /LPF Urine Mucus NEGATIVE /LPF Urine Culture Indicated NO My Orders Orders - MONICA AMADO APRN Influenza A And B Antigens (07/13/19 11:15) Cbc With Automated Diff (07/13/19 11:18) Comprehensive Metabolic Panel (07/13/19 11:18) Lipase (07/13/19 11:18) Ua Culture If Indicated (07/13/19 11:18) Heart Tones (07/13/19 11:18) Ed Iv/Invasive Line Start (07/13/19 11:18) Ns Iv 1000 Ml (Sodium Chloride 0.9%) (07/13/19 11:30) Ondansetron Injection (Zofran Injectio (07/13/19 11:30) Acetaminophen Tablet (Tylenol Tablet) (07/13/19 11:30) Medications Given in ED Current Medications Medications Dose Ordered Sig/Corona Route Start Time Stop Time Status Last Admin Dose Admin Acetaminophen 1,000 mg ONCE ONCE PO 07/13/19 11:30 07/13/19 11:31 DC 07/13/19 11:40 1,000 MG Ondansetron HCl 4 mg ONCE ONCE IVP 07/13/19 11:30 07/13/19 11:31 DC 07/13/19 11:39 4 MG Vital Signs/I&O Capillary Refill : Departure Impression Primary Impression: Nausea and vomiting during Additional Impression: Asymptomatic bacteriuria during Disposition: 01 HOME, SELF-CARE Condition: Stable Departure-Patient Inst. Decision time for Depature: 11:46 Referrals: BRYAN KWOK MD (PCP/Family) Primary Care Physician Patient Instructions: Nausea and Vomiting of (DC) Add. Discharge Instructions: 1. Return to concerns 2. Follow-up with your doctor next week. Scripts Cephalexin (Keflex) 500 Mg Capsule 500 MG PO TID, #10 CAP Prov: MONICA AMADO APRN 07/13/19 Ondansetron (Ondansetron Odt) 4 Mg Tab.rapdis 4 MG PO Q4H, #10 TAB Prov: MONICA AMADO APRN 07/13/19 MONICA AMADO APRN Jul 13, 2019 11:24
[2019-07-13 11:29] LABS: BASOPHILS % (AUTO) 0 % (0-10); EOSINOPHILS # (AUTO) 0.1 10^3/uL (0.0-0.3); EOSINOPHILS % (AUTO) 1 % (0-10); HEMATOCRIT 31 % (35-52); HEMOGLOBIN 10.9 G/DL (11.5-16.0); LYMPHOCYTES # (AUTO) 3.7 X 10^3 (1.0-4.0); LYMPHOCYTES % (AUTO) 34 % (12-44); MEAN CORPUSCULAR HEMOGLOBIN 31 PG (25-34); MEAN CORPUSCULAR HGB CONC 35 G/DL (32-36); MEAN CORPUSCULAR VOLUME 89 FL (80-99); MONOCYTES # (AUTO) 0.4 X 10^3 (0.0-1.0); MONOCYTES % (AUTO) 4 % (0-12); NEUTROPHILS # (AUTO) 6.5 X 10^3 (1.8-7.8); NEUTROPHILS % (AUTO) 60 % (42-75); PLATELET COUNT 266 10^3/uL (130-400); RED CELL DISTRIBUTION WIDTH 13.2 % (10.0-14.5); WHITE BLOOD COUNT 10.8 10^3/uL (4.3-11.0)
[2019-07-13] MEDS ORDERED: NS IV 1000 ML 1,000 ML IV SCH (11:30)
[2019-07-13] MEDS ORDERED: ACETAMINOPHEN 500 MG TAB (TYLENOL) PO ONE (11:30)
[2019-07-13] MEDS ORDERED: ONDANSETRON 4 MG/2 ML (SDV) Z0FRAN IVP ONE (11:30)
[2019-07-13 11:32] LABS: BILIRUBIN,URINE NEGATIVE (NEGATIVE); CLARITY,URINE CLEAR; COLOR,URINE YELLOW; GLUCOSE, URINE (UA) NEGATIVE (NEGATIVE); KETONES,URINE TRACE (NEGATIVE); LEUKOCYTE ESTERASE ,URINE 1+ (NEGATIVE); NITRITE,URINE NEGATIVE (NEGATIVE); PH,URINE 6.5 (5-9); PROTEIN,URINE NEGATIVE (NEGATIVE)
[2019-07-13 11:39] LABS: RBC,URINE 0-2 /HPF
[2019-07-13 11:40] LABS: BACTERIA,URINE MODERATE /HPF; SQUAMOUS EPITHELIAL CELL,UR 25-50 /HPF
[2019-07-13 11:46] LABS: ALANINE AMINOTRANSFERASE 10 U/L (0-55); ALBUMIN 3.9 GM/DL (3.2-4.5); ALKALINE PHOSPHATASE 70 U/L (40-136); BILIRUBIN,TOTAL 0.5 MG/DL (0.1-1.0); BUN/CREATININE RATIO 10; CALCIUM 9.3 MG/DL (8.5-10.1); CARBON DIOXIDE 20 MMOL/L (21-32); CHLORIDE 108 MMOL/L (98-107); CREATININE SERUM 0.62 MG/DL (0.60-1.30); GFR ESTIMATED > 60; GLUCOSE 83 MG/DL (70-105); LIPASE 28 U/L (8-78); POTASSIUM 3.9 MMOL/L (3.6-5.0); SODIUM 138 MMOL/L (135-145); TOTAL PROTEIN 6.7 GM/DL (6.4-8.2)
[2019-07-13] MEDS ORDERED: CEPH-507 PO (11:47)
[2019-07-13] MEDS ORDERED: ONDA4TAB11 PO (11:47)
[2019-07-13 12:38] VITALS: BP 113/72
== END 2019-07-13 12:37 | disposition home or self-care (01) ==
LOC: EDUNIT# 11:07 → ER 11:09
DX: O21.2 Late vomiting of pregnancy (principal); O26.892 Other specified pregnancy related conditions, second trimester; R82.71 Bacteriuria; Z88.0 Allergy status to penicillin; Z3A.23 23 weeks gestation of pregnancy
CPT/HCPCS: 36415; 80053; 81000; 83690; 85025; 87804

== ENCOUNTER 2019-10-17 07:28 | Outpatient (CLI) | payer BC ==
--- NOTE | 2019-10-17 07:15 | NUR ---
BEN PERLA presented to unit via AMBULATION, accompanied by MED/MANAGEMENT EXPERT, with c/o CONTRACTIONS. BEN PERLA weighed, gowned, voided, and to bed. EFHM and TOCO applied, VS taken. BEN PERAL oriented to bed controls, call light, TV, heat, and A/C controls.
[~2019-10-17 07:28] MED LIST changes: +CEPH-507 PO; +ONDA4TAB11 PO
[2019-10-17 07:35] VITALS: BP 133/76
[2019-10-17 07:36] VITALS: BP 133/76
--- NOTE | 2019-10-17 07:40 | NUR ---
reports contractions started prior to arrival to work last noc & becoming worse prior to arrival. states drinking "5 cups" of water last noc.denies urinary sx's. medical examiner @ side reports pt's contractions every 3-5 mins with 30sec -1 min duration.
--- NOTE | 2019-10-17 07:44 | NUR ---
pt reports "leaking". Nitrazine negative. no active leaking noted prior to SVE. SVE closed. thick, posterior
[2019-10-17 07:54] LABS: BILIRUBIN,URINE NEGATIVE (NEGATIVE); CLARITY,URINE CLEAR; COLOR,URINE YELLOW; GLUCOSE, URINE (UA) NEGATIVE (NEGATIVE); KETONES,URINE TRACE (NEGATIVE); LEUKOCYTE ESTERASE ,URINE NEGATIVE (NEGATIVE); NITRITE,URINE NEGATIVE (NEGATIVE); PROTEIN,URINE NEGATIVE (NEGATIVE)
--- NOTE | 2019-10-17 07:54 | NUR ---
verbal update given on on pt's admit c/o's, monitor tracing and SVE. orders received for IVF's.
[2019-10-17] MEDS ORDERED: NS IV 1000 ML 1,000 ML ONE (07:56)
[2019-10-17] MEDS ORDERED: NS IV 1000 ML 1,000 ML IV SCH (08:00)
[2019-10-17 08:11] LABS: BACTERIA,URINE FEW /HPF; WBC,URINE RARE /HPF
[2019-10-17 08:12] LABS: CALCIUM OXALATE CRYSTALS,UR RARE /LPF
--- NOTE | 2019-10-17 08:24 | NUR ---
#20g IV to Lt. hand x1 attempt by KARINE Humphreys. NS @ 999cc/hr via IV pump.
--- NOTE | 2019-10-17 08:26 | NUR ---
@ bedside, monitor tracing reviewed. POC reviewed with pt
--- NOTE | 2019-10-17 08:34 | History & Physical-OB ---
OB - Chief Complaint & HPI Date/Time Date of Admission: Date of Admission: Date seen by a Provider: Oct 17, 2019 Time Seen by a Provider: 08:05 Chief Complaint/History OB-Reason for Admission/Chief: Hx : 2 Hx Para: 0 Expected Date of Delivery: Nov 06, 2019 Gestational Age in Weeks: 37 Gestational Age in Days: 1 Other reason for admission: Patient came to L and D due to contractions she was having at work. 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 Reports at one time 3 in 5 mins. Admission Nurse Assessment Rev: Yes History of Labs Laboratory Tests Test 10/17/19 07:45 Range/Units Urine Color YELLOW Urine Clarity CLEAR Urine pH 6.0 5-9 Urine Specific [place] 1.025 H 1.016-1.022 Urine Protein NEGATIVE NEGATIVE Urine Glucose (UA) NEGATIVE NEGATIVE Urine Ketones TRACE H NEGATIVE Urine Nitrite NEGATIVE NEGATIVE Urine Bilirubin NEGATIVE NEGATIVE Urine Urobilinogen 0.2 < = 1.0 MG/DL Urine Leukocyte Esterase NEGATIVE NEGATIVE Urine RBC (Auto) NEGATIVE NEGATIVE Urine RBC NONE /HPF Urine WBC RARE /HPF Urine Squamous Epithelial Cells 2-5 /HPF Urine Crystals PRESENT H /LPF Urine Calcium Oxalate Crystals RARE H /LPF Urine Bacteria FEW H /HPF Urine Casts NONE /LPF Urine Mucus SMALL H /LPF Urine Culture Indicated YES Allergies and Home Medications Allergies Coded Allergies: Penicillins (Verified Allergy, Mild, RASH, 10/23/18) Home Medications Cephalexin 500 Mg Capsule, 500 MG PO TID Prescribed by: MONICA AMADO on 07/13/19 1147 Hydrocodone/Acetaminophen 1 Each Tablet, 1 TAB PO Q4-6HR Prescribed by: ALEXANDRE VELAZQUEZ on 10/24/18 0707 Ibuprofen 600 Mg Tablet, 600 MG PO Q6H Prescribed by: ALEXANDRE VELAZQUEZ on 10/24/18 0707 Ondansetron 4 Mg Tab.rapdis, 4 MG PO Q4H Prescribed by: MONICA AMADO on 07/13/19 1147 [bcp] , 1 TAB PO DAILY, (Reported) Patient Home Medication List Home Medication List Reviewed: Yes OB - History Hx of Present Care: Yes Ultrasounds: Normal mid trimester US Obstetrical Complications: None Medical Complications: None Obstetrical History Hx : 2 Hx Para: 0 Hx Total # of Abortions (Spona: 1 Delivery History Adverse Rxn to Tranfusion: No (N/A) Patient Past Medical History n/a Social History/Family History Alcohol Use: Denies Use Recreational Drug Use: No 2nd Hand Smoke Exposure: No Immunizations Date of Influenza Vaccine: Jan 29, 2018 OB - Admission Exam Physical Exam Vitals: Vital Signs 10/17/19 07:36 Temp 36.5 Pulse 101 Resp 18 Pulse Ox 100 O2 Delivery Room Air HEENT: NCAT Heart: Rhythm Normal Lungs: Clear Abdomen: Gravid Extremities: Normal Reflexes: Normal Cervical Dilatation: None Effacement: 50% Station: -2 Membranes: Intact Heart Rate: 130's Accelerations: Accelerations Present Decelerations: No Decelerations Short Term Variability: Present Blade Grader Operator Variability: Average (6-25) Contractions on Admission: 6-10 Minutes Apart Intensity: Mild Labs Laboratory Tests Test 10/17/19 07:45 Range/Units Urine Color YELLOW Urine Clarity CLEAR Urine pH 6.0 5-9 Urine Specific [place] 1.025 H 1.016-1.022 Urine Protein NEGATIVE NEGATIVE Urine Glucose (UA) NEGATIVE NEGATIVE Urine Ketones TRACE H NEGATIVE Urine Nitrite NEGATIVE NEGATIVE Urine Bilirubin NEGATIVE NEGATIVE Urine Urobilinogen 0.2 < = 1.0 MG/DL Urine Leukocyte Esterase NEGATIVE NEGATIVE Urine RBC (Auto) NEGATIVE NEGATIVE Urine RBC NONE /HPF Urine WBC RARE /HPF Urine Squamous Epithelial Cells 2-5 /HPF Urine Crystals PRESENT H /LPF Urine Calcium Oxalate Crystals RARE H /LPF Urine Bacteria FEW H /HPF Urine Casts NONE /LPF Urine Mucus SMALL H /LPF Urine Culture Indicated YES OB - Assessment/Plan/Diagnosis Assessment Admission Dx 24 yo @ 37 weeks Uterine contractions- false labor UTI Dehydration Admission Status: Observation Plan Other Plan IVF bolus started. Urine to be treated with Keflex 500 QID x 7 days and culture sent Will dc home if no cervical change, follow up in one week with ALEXANDRE Duarte DO Oct 17, 2019 8:33 am
--- NOTE | 2019-10-17 08:35 | NUR ---
DR VELAZQUEZ CONTACTED THIS RN, SAW UA RESULTS. ORDER REC'D TO CALL IN KEFLEX 500MG QID X 7 DAYS. IF NO CERVICAL CHANGE WITH NEXT SVE, PT MAY D/C HOME.
--- NOTE | 2019-10-17 09:00 | NUR ---
Keflex 500mg QID x7 day called into [facility] pharmacy per pt's request.
[2019-10-17] MEDS ORDERED: CEPH-507 PO (09:05)
--- NOTE | 2019-10-17 09:13 | NUR ---
SVE no change from admission exam. monitor dc'd.
--- NOTE | 2019-10-17 09:19 | NUR ---
dismissal instructions given, verbalizes understanding. reviewed Keflex Rx administration schedule and instructed pt to finish Rx and increase daily water intake. signature page signed, placed on chart.
--- NOTE | 2019-10-17 09:20 | NUR ---
pt ambulated to private vehicle with friend @ side. no sx's of distress noted.
[2019-10-17 11:38] VITALS: BP 133/76
== END 2019-10-17 09:20 | disposition home or self-care (01) ==
LOC: WSo 07:28 → LDRP 07:29 → WSo 09:20
PROVIDERS: ATTEND Obstetrics & Gynecology
DX: O47.1 False labor at or after 37 completed weeks of gestation (principal); O62.9 Abnormality of forces of labor, unspecified; O23.43 Unspecified infection of urinary tract in pregnancy, third trimester; O99.283 Endocrine, nutritional and metabolic diseases complicating pregnancy, third trimester; E86.0 Dehydration; Z3A.37 37 weeks gestation of pregnancy
CPT/HCPCS: 81000; 87088; 96360; G0463; 99214

== ENCOUNTER 2019-11-07 00:06 | Inpatient (IN) | payer OTHER, BC ==
[2019-11-07] VITALS (67 sets, daily range): BP systolic 82–191; BP diastolic 51–105
[~2019-11-07] VITALS: Ht 172.7 cm; Wt 85.2 kg
--- NOTE | 2019-11-07 06:12 | NUR ---
BEN PERLA presented to unit via ambulatory from ED, accompanied by so , with c/o INDUCTION. BEN PERLA weighed, gowned, voided, and to bed. EFHM and TOCO applied, VS taken. BEN PERLA oriented to bed controls, call light, TV, heat, and A/C controls. above compelted per this rn.
--- OUTSIDE RECORDS SUMMARY | 2019-11-07 06:14 | XMS REPORT | Continuity of Care Document ---
Author Organization Unknown Address Unknown Phone Unavailable Allergies Active Description Code Type Severity Reaction Onset Reported/Identified Relationship to Patient Clinical Status Yes PENICILLINS UNKNOWN UNKNOWN Yes No Allergy Information Available [id number] Drug Allergy Unknown N/A 019 Yes Penicillins [id number] Drug Aller gy Unknown RASH 06/05/2018 Yes Penicillins [id number] Drug Aller gy Mild RASH 10/23/2018 Medications Medication Packaging Start Date St op Date Route Dosage Sig ONDANSETRON VIAL INJ [...] Coded Attending Type Code Diagnosis Diagnosed By 04/07/2017 A 309.24 ADJ USTMENT DISORDER WITH ANXIETY 04/07/2017 A F43.22 ADJ USTMENT DISORDER WITH ANXIETY 04/21/2017 A 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 04/21/2017 A F39 UNSPEC IFIED MOOD [AFFECTIVE] DISORDER 08/31/2017 A 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 08/31/2017 W 780.99 OTH ER GENERAL SYMPTOMS 08/31/2017 A F43.23 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 08/31/2017 W R20.8 OTHE R DISTURBANCES OF SKIN SENSATION 05/18/2018 Marlen Kwok W 789.01 ABDOMINAL PAIN, RIGHT UPPER QUADRANT 05/18/2018 Marlen Kwok W R10.11 RIGHT UPPER QUADRANT PAIN 05/18/2018 W 789.01 ABD OMINAL PAIN, RIGHT UPPER QUADRANT 05/18/2018 W R10.11 RIG HT UPPER QUADRANT PAIN 05/18/2018 RichardLuisaa W 789.01 ABDOMINAL PAIN, RIGHT UPPER QUADRANT 05/18/2018 RichardLuisa sandovala W R10.11 RIGHT UPPER QUADRANT PAIN 05/19/2018 LEISURE, SANDY W 535.0 ACUTE GASTRITIS 05/19/2018 LEISURE, KARENJenn W 535.00 ACUTE GASTRITIS, WITHOUT MENTION OF HEMORRHAGE 05/19/2018 LEISURE, KARENJenn W A09 INFECTIOUS GASTROENTERITIS AND COLITIS, UNSPECIFIED 05/19/2018 LEISURE, KARENJenn W K29.00 ACUTE GASTRITIS WITHOUT BLEEDING 06/01/2018 MARLEN KWOK MD Ot R10.11 RIGHT UPPER QUADRANT PAIN 06/05/2018 [...] ALLERGY STATUS TO PENICILLIN 06/12/2018 HERNAN ANDERSON MD Ot K21.9 GASTRO-ESOPHAGEAL REFLUX DISEASE WITHOUT 06/12/2018 HERNAN ANDERSON MD Ot K81.1 CHRONIC CHOLECYSTITIS 06/12/2018 HERNAN ANDERSON MD Ot K82.8 OTHER SPECIFIED DISEASES OF GALLBLADDER 06/12/2018 HERNAN ANDERSON MD Ot Z11.2 ENCOUNTER FOR SCREENING FOR OTHER BACTER 06/12/2018 HERNAN ANDERSON MD Ot Z88.0 ALLERGY STATUS TO PENICILLIN 06/13/2018 MARLEN KWOK MD Ot R10.11 RIGHT UPPER QUADRANT PAIN 07/19/2018 W 784.1 THRO AT PAIN 07/19/2018 W J02.9 ACUT E PHARYNGITIS, UNSPECIFIED 10/23/2018 ALEXANDRE VELAZQUEZ DO Ot Z01.818 ENCOUNTER FOR OTHER PREPROCEDURAL EXAMIN 10/24/2018 GISELAECH DO, ALEXANDRE Rosa Ot Z01.818 ENCOUNTER FOR OTHER PREPROCEDURAL EXAMIN 10/24/2018 GISELAECH DO, ALEXANDRE Rosa Ot O02.1 MISSED 10/24/2018 FENECH DO, ALEXANDRE Rosa Ot Z88.0 ALLERGY STATUS TO PENICILLIN 10/25/2018 FENECH DO, ALEXANDRE Rosa Ot O02.1 MISSED 10/25/2018 FENECH DO, ALEXANDRE Rosa Ot Z88.0 ALLERGY STATUS TO PENICILLIN 10/31/2018 FENECH DO, ALEXANDRE Rosa Ot O02.1 MISSED 10/31/2018 FENECH DO, ALEXANDRE Rosa Ot Z88.0 ALLERGY STATUS TO PENICILLIN 07/15/2019 FENECH DO, ALEXANDRE Shelley Ot Z34.92 ENCNTR FOR SUPRVSN OF NORMAL PREG, UNSP, 07/15/2019 MARCUS DO, ALEXANDRE Rosa Ot Z3A.20 20 WEEKS GESTATION OF 07/16/2019 Ot O21.2 LATE VOMITING OF 07/16/2019 Ot O26.892 OT H RELATED CONDITIONS, SECOND 07/16/2019 Ot R82.71 BRANDIE TERIURIA 07/16/2019 Ot Z3A.23 23 WEEKS GESTATION OF 07/16/2019 Ot Z88.0 SWATHI RGY STATUS TO [facility]ICILLIN [facility] E86.0 DEHYDRATION 10/22/2019 GISELAECH DO, ALEXANDRE Rosa Ot O23.43 UNSP INFCT OF URINARY TRACT IN 10/22/2019 GISELAECH DO, ALEXANDRE Rosa Ot O47.1 FALSE LABOR AT OR AFTER 37 COMPLETED WEE 10/22/2019 GISELAECH DOALEXANDRE Ot O62.9 ABNORMALITY OF FORCES OF LABOR, UNSPECIF 10/22/2019 FENECH DOALEXANDRE Ot O99.283 ENDO, NUTRITIONAL AND METAB DISEASES COM 10/22/2019 GISELAECH DOALEXANDRE Ot Z3A.37 37 WEEKS GESTATION OF 10/23/2019 GISELAECH ALEXANDRE FINCH Ot E86.0 DEHYDRATION 10/23/2019 GISELAECH DOALEXANDRE Ot O23.43 UNSP INFCT OF URINARY TRACT IN 10/23/2019 GISELAECH DO, ALEXANDRE Rosa Ot O47.1 FALSE LABOR AT OR AFTER 37 COMPLETED WEE 10/23/2019 FENECH DOALEXANDRE Ot O62.9 ABNORMALITY OF FORCES OF LABOR, UNSPECIF 10/23/2019 ALEXANDRE VELAZQUEZ DO Ot O99.283 ENDO, NUTRITIONAL AND METAB DISEASES COM 10/23/2019 ALEXANDRE VELAZQUEZ DO Ot Z3A.37 37 WEEKS GESTATION OF Procedures There is no data. Results Test Result Range Urinalysis - 04/07/17 16:29 Icotest N/A Negative Urine Crystals Amorphous material: moderate/HPF Urine Volume Urine Volume Sufficient (10mL) Urine-Appearance Clear Clear Urine-Bacteria 3+ Urine-Bilirubin Negative Negative Urine-Blood Trace-lysed Negative Urine-Color Yellow Colorless-Lt. Emanuel ow Urine-Epithelial Cells 5-10/HPF Urine-Glucose Negative Negative Urine-Ketones Negative Negative Urine-Leukocytes Trace Negative Urine-Nitrite Negative Negative Urine-Other Urine Saved if Culture Need ed (48hrs from time of collection) Urine-pH 6.0 5-8.5 Urine-Protein Negative Negative Urine-RBC 0-2/HPF Urine-Specific Beeler 1.020 1.000-1 .030 Urine-WBC 2-5/HPF Urobilinogen 0.2 0.2-1.0 Comprehensive Metabolic [...] Negative Urine-Blood Trace-intact Negative Urine-Color Yellow Colorless-Lt. Emanuel ow Urine-Epithelial Cells 0-5/HPF Urine-Glucose Negative Negative Urine-Ketones 1+ Negative Urine-Leukocytes Negative Negative Urine-Nitrite Negative Negative Urine-Other Urine Saved if Culture Need ed (48hrs from time of collection) Urine-pH 5.5 5-8.5 Urine-Protein Negative Negative Urine-RBC Rare/HPF Urine-Specific Beeler >=1.030 1.000-1 .030 Urine-WBC Negative Urobilinogen 0.2 E.U./dL 0.2-1.0 Amylase - 05/18/18 23:55 Amylase 54 U/L 20-100 Lipase - 05/18/18 23:55 Lipase 25 U/L 7-59 Quik Strep - 05/19/18 00:30 Quik Strep Negative - confirmation culture set. Negative Urine beta human chorionic gonadotropin (hCG) measurement - 06/06/18 09:41 Urine beta human chorionic gonadotropin (hCG) measurem ent NEGATIVE NEGATIVE Methicillin resistant Staphylococcus aur eus (MRSA) screening culture - 06/06/18 10:08 Methicillin resistant Staphylococcus aureus (MRSA) scr eening culture NEG NRG Methicillin resistant Staphylococcus aur eus (MRSA) screening culture - 10/24/18 06:19 Methicillin resistant Staphylococcus aureus (MRSA) scr eening culture NEG NRG Complete blood count (CBC) with automate d white blood cell (WBC) differential - 10/24/18 06:35 Blood leukocytes automated count (number/volume) 10.1 10*3/uL 4.3-11.0 Blood erythrocytes automated count (number/volume) 4.01 10*6/uL 4.35-5.85 Venous blood hemoglobin measurement (mass/volume) 11.5 g/dL 11.5-16.0 Blood hematocrit (volume fraction) 34 % 35-52 Automated erythrocyte mean corpuscular volume 84 [ foz_us] 80-99 Automated erythrocyte mean corpuscular h emoglobin (mass per erythrocyte) 29 pg 25-34 Automated erythrocyte mean corpuscular h emoglobin concentration measurement (mass/volume) 34 g/dL 32-36 Automated erythrocyte distribution width ratio 12. 3 % 10.0- 14.5 Automated blood platelet count (count/volume) 350 10*3/uL 130-400 Automated blood platelet mean volume measurement 9.3 [foz_us] 7.4-10.4 Automated blood neutrophils/100 leukocytes 52 % 42-75 Automated blood lymphocytes/100 leukocytes 41 % 12-44 Blood monocytes/100 leukocytes 6 % 0-12 Automated blood eosinophils/100 leukocytes 2 % 0-10 Automated blood basophils/100 leukocytes 0 % 0-10 Blood neutrophils automated count (number/volume) 5.2 10*3 1.8-7.8 Blood lymphocytes automated count (number/volume) 4.1 10*3 1.0-4.0 Blood monocytes automated count (number/volume) 0. 6 10*3 0.0-1.0 Automated eosinophil count 0.2 10*3/uL 0 .0-0.3 Automated blood basophil count (count/volume) 0.0 10*3/uL 0.0-0.1 Blood type T Indirect antibody screen [facility] [place] - 10/24/18 06:35 WRISTBAND NUMBER [id number] NRG ABO+Rh group ON NRG Blood group antibody screen NEGATIVE NR G Mycoplasma - 05/08/19 14:32 Mycoplasma Positive Negative Influenza virus A and B antigen detectio n - 07/13/19 11:16 FLU RESULT NEGATIVE FOR INFLUENZA A AND B ANTIGENS BY [facility] Complete blood count (CBC) with automate d white blood cell (WBC) differential - 07/13/19 11:20 Blood leukocytes automated count (number/volume) 10.8 10*3/uL 4.3-11.0 Blood erythrocytes automated count (number/volume) 3.54 10*6/uL 4.35-5.85 Venous blood hemoglobin measurement (mass/volume) 10.9 g/dL 11.5-16.0 Blood hematocrit (volume fraction) 31 % 35-52 Automated erythrocyte mean corpuscular volume 89 [ foz_us] 80-99 Automated erythrocyte mean corpuscular h emoglobin (mass per erythrocyte) 31 pg 25-34 Automated erythrocyte mean corpuscular h emoglobin concentration measurement (mass/volume) 35 g/dL 32-36 Automated erythrocyte distribution width ratio 13. 2 % 10.0- 14.5 Automated blood platelet count (count/volume) 266 10*3/uL 130-400 Automated blood platelet mean volume measurement 9.0 [foz_us] 7.4-10.4 Automated blood neutrophils/100 leukocytes 60 % 42-75 Automated blood lymphocytes/100 leukocytes 34 % 12-44 Blood monocytes/100 leukocytes 4 % 0-12 Automated blood eosinophils/100 leukocytes 1 % 0-10 Automated blood basophils/100 leukocytes 0 % 0-10 Blood neutrophils automated count (number/volume) 6.5 10*3 1.8-7.8 Blood lymphocytes automated count (number/volume) 3.7 10*3 1.0-4.0 Blood monocytes automated count (number/volume) 0. 4 10*3 0.0-1.0 Automated eosinophil count 0.1 10*3/uL 0 .0-0.3 Automated blood basophil count (count/volume) 0.0 10*3/uL 0.0-0.1 Complete urinalysis with reflex to cultu re - 07/13/19 11:20 Urine color determination YELLOW NRG Urine clarity determination CLEAR NR G Urine pH measurement by test strip 6.5 5-9 Specific gravity of urine by test strip 1.015 1.016-1.022 Urine protein assay by test strip, semi-quantitative NEGATIVE NEGATIVE Urine glucose detection by automated test strip NE GATIVE NEGATIVE Erythrocytes detection in urine sediment by light micr oscopy NEGATIVE NEGATIVE Urine ketones detection by automated test strip TR BOGDAN NEGATIVE Urine nitrite detection by test strip NEGATIVE NEGATIVE Urine total bilirubin detection by test strip NEGA TIVE NEGATIVE Urine urobilinogen measurement by automated test strip (mass/volume) 0.2 mg/dL < = 1.0 Urine leukocyte esterase detection by dipstick 1+ NEGATIVE Automated urine sediment erythrocyte cou nt by microscopy (number/high power field) [HPF] NRG Automated urine sediment leukocyte count by microscopy (number/high power field) [HPF] NRG Bacteria detection in urine sediment by light microsco py MODERATE NRG Squamous epithelial cells detection in u rine sediment by light microscopy 25-50 NRG Crystals detection in urine sediment by light microsco py NONE NRG Casts detection in urine sediment by light microscopy NONE NRG Mucus detection in urine sediment by light microscopy NEGATIVE NRG Complete urinalysis with reflex to culture NO NRG Comprehensive metabolic panel - 07/13/19 11:20 Serum or plasma sodium measurement (moles/volume) 138 mmol/L 135-145 Serum or plasma potassium measurement (moles/volume) 3.9 mmol/L 3.6-5.0 Serum or plasma chloride measurement (moles/volume) 108 mmol/L 98-107 Carbon dioxide 20 mmol/L 21-32 Serum or plasma anion gap determination (moles/volume) 10 mmol/L 5-14 Serum or plasma urea nitrogen measurement (mass/volume ) 6 mg/dL 7-18 Serum or plasma creatinine measurement (mass/volume) 0.62 mg/dL 0.60-1.30 Serum or plasma urea nitrogen/creatinine mass ratio 10 NRG Serum or plasma creatinine measurement w ith calculation of estimated glomerular filtration rate > NRG Serum or plasma glucose measurement (mass/volume) 83 mg/dL 70-105 Serum or plasma calcium measurement (mass/volume) 9.3 mg/dL 8.5-10.1 Serum or plasma total bilirubin measurement (mass/volu me) 0.5 mg/dL 0.1-1.0 Serum or plasma alkaline phosphatase nelli surement (enzymatic activity/volume) 70 U/L 40-136 Serum or plasma aspartate aminotransfera se measurement (enzymatic activity/volume) 14 U/L 5-34 Serum or plasma alanine aminotransferase measurement (enzymatic activity/volume) 10 U/L 0-55 Serum or plasma protein measurement (mass/volume) 6.7 g/dL 6.4-8.2 Serum or plasma albumin measurement (mass/volume) 3.9 g/dL 3.2-4.5 CALCIUM CORRECTED 9.4 mg/dL 8.5-10.1 Lipase - 07/13/19 11:20 Lipase 28 U/L 8-78 Complete urinalysis with reflex to cultu re - 10/17/19 07:45 Urine color determination YELLOW NRG Urine clarity determination CLEAR NR G Urine pH measurement by test strip 6.0 5-9 Specific gravity of urine by test strip 1.025 1.016-1.022 Urine protein assay by test strip, semi-quantitative NEGATIVE NEGATIVE Urine glucose detection by automated test strip NE GATIVE NEGATIVE Erythrocytes detection in urine sediment by light micr oscopy NEGATIVE NEGATIVE Urine ketones detection by automated test strip TR BOGDAN NEGATIVE Urine nitrite detection by test strip NEGATIVE NEGATIVE Urine total bilirubin detection by test strip NEGA TIVE NEGATIVE Urine urobilinogen measurement by automated test strip (mass/volume) 0.2 mg/dL < = 1.0 Urine leukocyte esterase detection by dipstick NEG ATIVE NEGATIVE Automated urine sediment erythrocyte cou nt by microscopy (number/high power field) NONE NRG Automated urine sediment leukocyte count by microscopy (number/high power field) RARE NRG Bacteria detection in urine sediment by light microsco py FEW NRG Squamous epithelial cells detection in u rine sediment by light microscopy 2-5 NRG Crystals detection in urine sediment by light microsco py PRESENT NRG Casts detection in urine sediment by light microscopy NONE NRG Mucus detection in urine sediment by light microscopy SMALL NRG Complete urinalysis with reflex to culture YES NRG Calcium oxalate crystals detection in ur ine sediment by light microscopy RARE NRG Bacterial urine culture - 10/17/19 07:45 Bacterial urine culture 3 OR MORE NRG COLONY COUNT 40,000 CFU/ML NRG SUSCEPTIBILITY GRAM POSITIVE ISOLATES; SUGGESTING NRG MRSA SCREEN PROBABLE COLLECTION CONTAMINATION WITH NRG RAPID ID SKIN TESFAYE. NO SUSCEPTIBILITY PERFORMED. NRG COVID19 - 10/22/19 10:29 COVID19 NEGATIVE test performed at [facility] SARS-CoV-2 Antibody, IgG - 10/22/19 10:4 2 SARS-CoV-2 Antibody, IgG 0.01 Performed at [facility] La b S/CO 0.00-0.79 Encounters ACCT No. Visit Date/Time Discharge Status Pt. Type Provider Facility Loc./Unit Complaint [id number] 03/05/2014 15:37:16 03/05/2014 23:59: 59 CLS Outpatient Fadumo Elizalde [id number] 10/17/2019 07:28:00 09:20:00 DIS Outpatient FENECH DOALEXANDRE S [facility] WSo CONTRACTIONS [id number] 06/26/2019 15:03:00 23:59:59 CLS Outpatient GISELAECH DOALEXANDRE S [facility] RAD [id number] 10/24/2018 06:06:00 019 10:30:00 DIS Outpatient FENECH DOALEXANDRE S [facility] SDC MISSED AB [id number] 10/23/2018 05:31:00 11:05:00 DIS Outpatient FENECH DOALEXANDRE S [facility] PREOP MISSED AB [id number] 06/06/2018 09:32:00 019 14:45:00 DIS Outpatient HERNAN ANDERSON MD Via [facility] GALLBLADDER DYSKENESIA [id number] 06/05/2018 10:40:00 019 12:03:00 DIS Outpatient HERNAN ANDERSON MD [facility] PREOP ROBO ANN MARIE [id number] 05/31/2018 12:01:00 019 23:59:59 CLS Outpatient MARLEN KWOK MD [facility] CARD RUQ PAIN [id number] 11/07/2019 05:57:[address] Inpatient FENBENNY DO, ALEXANDRE S [facility] LDRP INDUCTION [id number] 07/13/2019 11:29:00 Document Registration [id number] 10/22/2019 10:19:00 10/22/2019 23:59 :00 DIS Outpatient Marlen Kwok [id number] 06/24/2019 15:28:00 06/24/2019 23:59 :00 DIS Outpatient Marlen Kwok [id number] 05/08/2019 14:29:00 05/08/2019 23:59 :00 DIS Outpatient Marlen Kwok [id number] 05/08/2019 11:45:00 05/08/2019 23:59 :00 DIS Outpatient Marlen Kwok [id number] 03/22/2019 15:34:00 03/22/2019 23:59: 00 DIS Outpatient Marlen Kwok [id number] 11/28/2018 09:10:00 11/28/2018 23:59: 00 DIS Outpatient Marlen Kwok [id number] 05/18/2018 23:35:00 05/19/2018 01:45: 00 DIS Outpatient SANDY ROY [facility] [id number] 05/18/2018 14:19:00 05/18/2018 23:59: 00 DIS Outpatient Marlen Kwok [id number] 04/07/2017 16:27:00 04/07/2017 23:59: 00 DIS Outpatient Marlen Kwok [id number] 07/19/2018 09:17:00 Document Registration [id number] 05/19/2018 00:13:14 Document Registration [id number] 05/18/2018 13:52:00 Document Registration [id number] 08/31/2017 15:28:00 Document Registration [id number] 04/21/2017 08:52:00 Document Registration [id number] 04/07/2017 14:59:00 Document Registration
[2019-11-07] MEDS ORDERED: D5 LR IV SOLUTION 1,000 ML IV ONE (07:21)
[2019-11-07 07:25] LABS: BASOPHILS % (AUTO) 0 % (0-10); EOSINOPHILS # (AUTO) 0.1 10^3/uL (0.0-0.3); EOSINOPHILS % (AUTO) 1 % (0-10); HEMATOCRIT 32 % (35-52); LYMPHOCYTES # (AUTO) 4.5 X 10^3 (1.0-4.0); LYMPHOCYTES % (AUTO) 37 % (12-44); MEAN CORPUSCULAR HEMOGLOBIN 31 PG (25-34); MEAN CORPUSCULAR HGB CONC 35 G/DL (32-36); MEAN CORPUSCULAR VOLUME 90 FL (80-99); MEAN PLATELET VOLUME 9.9 FL (7.4-10.4); MONOCYTES # (AUTO) 0.6 X 10^3 (0.0-1.0); MONOCYTES % (AUTO) 5 % (0-12); NEUTROPHILS # (AUTO) 6.9 X 10^3 (1.8-7.8); NEUTROPHILS % (AUTO) 58 % (42-75); PLATELET COUNT 266 10^3/uL (130-400); RED CELL DISTRIBUTION WIDTH 13.3 % (10.0-14.5); WHITE BLOOD COUNT 12.1 10^3/uL (4.3-11.0)
[2019-11-07] MEDS: D5 LR IV SOLUTION 1,000 ML IV SCH ×2 (07:28→14:17)
[2019-11-07] MEDS ORDERED: MINERAL OIL CONCENTRATE 99.9% 15 ML UDC TOP PRN (07:30)
--- NOTE | 2019-11-07 08:37 | History & Physical-OB ---
OB - Chief Complaint & HPI Date/Time Date of Admission: Date of Admission: Nov 07, 2019 at 5:57 am Date seen by a Provider: Nov 07, 2019 Time Seen by a Provider: 08:15 Chief Complaint/History OB-Reason for Admission/Chief: Induction of Labor Hx : 2 Hx Para: 0 Expected Date of Delivery: Nov 06, 2019 Gestational Age in Weeks: 40 Gestational Age in Days: 1 Indication for induction: post dates Admission Nurse Assessment Rev: Yes History of Labs GBS neg Allergies and Home Medications Allergies Coded Allergies: Penicillins (Verified Allergy, Mild, RASH, 10/23/18) Home Medications Cephalexin 500 Mg Capsule, 500 MG PO QID, (Reported) Patient Home Medication List Home Medication List Reviewed: Yes OB - History Hx of Present Care: Yes Ultrasounds: Normal mid trimester US Obstetrical Complications: None Medical Complications: None Delivery History Adverse Rxn to Tranfusion: No (N/A) Patient Past Medical History n/a Social History/Family History HIV/AIDS: No Recent Infectious Disease Expo: No Sexually Transmitted Disease: No Alcohol Use: Denies Use Recreational Drug Use: No 2nd Hand Smoke Exposure: No Immunizations Hepatitis A: Yes Hepatitis B: Yes Date of Influenza Vaccine: Jan 29, 2018 OB - Admission Exam Physical Exam HEENT: NCAT Heart: Rhythm Normal Lungs: Clear Abdomen: Gravid Extremities: Normal Reflexes: Normal Cervical Dilatation: 3cm Effacement: 75% Station: -1 Membranes: Intact Heart Rate: 130's Accelerations: Accelerations Present Decelerations: No Decelerations Short Term Variability: Present Halfway Variability: Average (6-25) Contractions on Admission: >10 Minutes Apart Intensity: Mild Kirby Scoring Tool (Modified) Dilation (cm): 3-4cm (2) Effacement (%): 51-79% (2) Descent/Station: -1,0 (2) Cervix Consistency: Soft (2) Cervix Position: Middle/Mid-Position (1) Subtract 1 point for: Nulliparity (-1) Kirby Score: 9 Labs Laboratory Tests Test 11/07/19 06:30 Range/Units White Blood Count 12.1 H 4.3-11.0 10^3/uL Red Blood Count 3.55 L 4.35-5.85 10^6/uL Hemoglobin 11.0 L 11.5-16.0 G/DL Hematocrit 32 L 35-52 % Mean Corpuscular Volume 90 80-99 FL Mean Corpuscular Hemoglobin 31 25-34 PG Mean Corpuscular Hemoglobin Concent 35 32-36 G/DL Red Cell Distribution Width 13.3 10.0-14.5 % Platelet Count 266 130-400 10^3/uL Mean Platelet Volume 9.9 7.4-10.4 FL Neutrophils (%) (Auto) 58 42-75 % Lymphocytes (%) (Auto) 37 12-44 % Monocytes (%) (Auto) 5 0-12 % Eosinophils (%) (Auto) 1 0-10 % Basophils (%) (Auto) 0 0-10 % Neutrophils # (Auto) 6.9 1.8-7.8 X 10^3 Lymphocytes # (Auto) 4.5 H 1.0-4.0 X 10^3 Monocytes # (Auto) 0.6 0.0-1.0 X 10^3 Eosinophils # (Auto) 0.1 0.0-0.3 10^3/uL Basophils # (Auto) 0.0 0.0-0.1 10^3/uL OB - Assessment/Plan/Diagnosis Assessment Admission Dx 24 yo @ 40.1 Postdates induction of labor GBS neg Admission Status: Inpatient Order (span 2 midnights) Reason for Inpatient Admission: Postdates induction Plan Plan: Induction Induction Method: ALEXANDRE SAENZ DO Nov 07, 2019 8:37 am
[2019-11-07] MEDS: OXYTOCIN PRE-MIX DRIP 500 ML IV SCH ×2 (09:02→19:58)
[2019-11-07] MEDS ORDERED: fentaNYL 2 mcg/ml BUPIVA 0.125 100 ML ONE (11:24)
--- NOTE | 2019-11-07 11:24 | NUR ---
Anesthesia notified of epidural request
[2019-11-07] MEDS ORDERED: BUPIVACAINE 0.25% 30 ML (SENSORCAINE) VIAL ONE (11:39)
[2019-11-07] MEDS ORDERED: fentaNYL INJECTION 100 MCG/2 ML AMP ONE (11:39)
[2019-11-07] MEDS ORDERED: LACTATED RINGERS 1,000 ML IV ONE (12:46)
[2019-11-07] MEDS ORDERED: fentaNYL 2 mcg/ml BUPIVA 0.125 100 ML IV SCH (12:46)
[2019-11-07] MEDS ORDERED: EPIDURAL (fentaNYL 2 MCG/ML BUPIVA 0.125%)100 ML BAG EPI SCH (13:00)
[2019-11-07] MEDS ORDERED: ONDANSETRON 4 MG/2 ML (SDV) Z0FRAN IV PRN (13:00)
[2019-11-07] MEDS ORDERED: CATHETER FLUSH 10 ML SYR IV PRN (13:00)
[2019-11-07] MEDS ORDERED: diphenhydrAMINE 50 MG/ML INJ (BENADRYL) IV PRN (13:00)
[2019-11-07] MEDS ORDERED: NALOXONE 0.4 MG/ML 1 ML (NARCAN) VIAL IV PRN (13:00)
[2019-11-07] MEDS ORDERED: CATHETER FLUSH 10 ML SYR IV SCH ×2 (14:00→22:00)
[2019-11-07] MEDS ORDERED: PROMETHAZINE INJ 25 MG/ML (PHENERGAN) AMP ONE (16:37)
[2019-11-07] MEDS ORDERED: PROMETHAZINE INJ 25 MG/ML (PHENERGAN) AMP IVP ONE (16:45)
[2019-11-07] MEDS ORDERED: LIDOCAINE/EPI 2% 1:200,00 (XYLOCAINE) 10 ML VIAL ONE (16:49)
--- NOTE | 2019-11-07 19:51 | OB Labor & Delivery Record ---
L&D History Date of Service Date of Service: Nov 07, 2019 History Expected Date of Delivery: Nov 06, 2019 Gestational Age in Weeks: 40 Hx : 2 Hx Para: 0 Complications Events: Routine care Operative Indications (Cesarea: N/A-Vaginal Delivery Intrapartal Events: None L&D Stage1 Stage One Onset of Labor - Date: Nov 07, 2019 Monitors and Tracing Monitor Mode: External Heart Rate: 125 Monitor Accelerations: Uniform Monitor Decelerations: None Station: 0 Skilled Nursing Variability: Average (6-10) Short Term Variability: Present Presentation: Vertex Vital Signs VS - Last 72 Hours, by Label 11/07/19 11/07/19 11/07/19 11/07/19 07:35 09:05 09:20 09:35 Temp 36.5 Pulse 102 95 85 88 Resp 18 18 18 18 B/P (MAP) 124/80 (95) 120/74 (89) 128/81 (97) Pulse Ox 98 O2 Delivery Room Air Room Air Room Air Room Air 11/07/19 11/07/19 11/07/19 11/07/19 09:50 10:05 10:20 10:35 Temp 36.7 Pulse 91 90 93 86 Resp 18 18 18 18 B/P (MAP) 124/81 (95) 130/82 (98) 119/75 (90) 127/85 (99) O2 Delivery Room Air Room Air Room Air Room Air 11/07/19 11/07/19 11/07/19 11/07/19 10:50 11:05 11:20 11:35 Pulse 89 83 85 86 Resp 18 18 18 18 B/P (MAP) 117/70 (86) 114/82 (93) 120/83 (95) 126/87 (100) O2 Delivery Room Air Room Air Room Air Room Air 11/07/19 11/07/19 11/07/19 11/07/19 11:50 11:56 12:00 12:03 Pulse 90 94 90 94 Resp 18 18 18 18 B/P (MAP) 133/74 (93) 132/82 (99) 133/82 (99) 124/76 (92) Pulse Ox 99 98 98 98 O2 Delivery Room Air Room Air Room Air Room Air 11/07/19 11/07/19 11/07/19 11/07/19 12:06 12:09 12:12 12:15 Temp 37.0 Pulse 99 92 99 90 Resp 18 18 18 18 B/P (MAP) 114/65 (81) 98/57 (71) 82/51 (61) 108/66 (80) Pulse Ox 97 97 99 97 O2 Delivery Room Air Room Air Room Air Room Air 11/07/19 11/07/19 11/07/19 11/07/19 12:18 12:21 12:26 12:31 Pulse 90 102 112 101 Resp 18 18 18 18 B/P (MAP) 110/64 (79) 113/68 (83) 105/62 (76) 111/61 (78) Pulse Ox 97 98 98 99 O2 Delivery Room Air Room Air Room Air Room Air 11/07/19 11/07/19 11/07/19 11/07/19 12:36 12:41 12:46 12:51 Pulse 103 102 101 104 Resp 18 18 18 18 B/P (MAP) 104/57 (73) 110/68 (82) 102/62 (75) 107/58 (74) Pulse Ox 100 100 100 100 O2 Delivery Room Air Room Air Room Air Room Air 11/07/19 11/07/19 11/07/19 11/07/19 12:56 13:01 13:20 13:35 Pulse 91 103 93 83 Resp 18 18 18 18 B/P (MAP) 104/69 (81) 104/66 (79) 99/63 (75) 94/57 (69) Pulse Ox 99 99 O2 Delivery Room Air Room Air Room Air Room Air 11/07/19 11/07/19 11/07/19 11/07/19 13:50 14:05 14:20 14:50 Temp 36.1 Pulse 77 80 87 83 Resp 18 18 18 18 B/P (MAP) 96/58 (71) 96/58 (71) 110/51 (70) 121/76 (91) O2 Delivery Room Air Room Air Room Air Room Air 11/07/19 11/07/19 11/07/19 11/07/19 15:05 15:20 15:35 15:50 Temp 36.1 Pulse 105 83 83 92 Resp 18 18 18 18 B/P (MAP) 122/76 (91) 125/79 (94) 108/60 (76) 112/60 (77) O2 Delivery Room Air Room Air Room Air Room Air 11/07/19 11/07/19 11/07/19 11/07/19 16:05 16:20 16:50 17:05 Temp 36.2 Pulse 93 88 85 84 Resp 18 18 18 18 B/P (MAP) 106/56 (73) 110/59 (76) 127/78 (94) 127/78 (94) O2 Delivery Room Air Room Air Room Air Room Air 11/07/19 11/07/19 11/07/19 11/07/19 17:20 17:35 17:40 17:45 Pulse 83 117 101 113 Resp 18 18 18 18 B/P (MAP) 116/64 (81) 168/74 (105) 114/78 (90) 141/72 (95) O2 Delivery Room Air Room Air Room Air Room Air 11/07/19 11/07/19 11/07/19 11/07/19 17:50 18:00 18:05 18:10 Pulse 94 126 89 Resp 18 18 18 18 B/P (MAP) 115/83 (94) 125/62 (83) 110/69 (83) 122/74 (90) O2 Delivery Room Air Room Air Room Air Room Air 11/07/19 11/07/19 11/07/19 11/07/19 18:15 18:20 18:35 18:38 Pulse 98 125 96 103 Resp 18 18 18 18 B/P (MAP) 130/87 (101) 130/71 (90) 123/62 (82) 132/74 (93) O2 Delivery Room Air Room Air Room Air Room Air 11/07/19 11/07/19 11/07/19 11/07/19 18:42 18:47 18:52 18:57 Pulse 109 112 125 133 Resp 18 18 18 18 B/P (MAP) 141/104 (116) 140/65 (90) 139/63 (88) 137/105 (116) O2 Delivery Room Air Room Air Room Air Room Air Rupture of Membranes Spontaneous Ruture of Membrane: No Amniotic Membrane Rupture Time: 0758 Amniotic Membrane Fluid Desc.: Clear Vaginal Bleeding Description: Normal Show Induction/Anesthesia Epidural Cath Placement - Time: 1155 Progress/Notes AROM preformed and Pitocin augmentation started to maximum dosage of 14 milunits. Patient progressed with epidural analgesia to complete and +2 station. L&D Stage2 Stage Two Stage II Date: Nov 07, 2019 Monitors and Tracing Monitor Mode: External Heart Rate: 125 Monitor Decelerations: Variable Percolator Operator Variability: Average (6-10) Short Term Variability: Present Position: Left Occiput Anterior Presentation: Vertex Cord Descript/Complications Cord Vessel Description: 3 Vessels Delivery Type Delivery Method: Spontaneous Vaginal Anterior Shoulder: Left Episiotomy/Perineal Laceration Laceraction(s)/Extensions: Yes Degree (describe repair) right labial evulsion repaired using 3-0 repead in usual interrupted fashion Condition of Infant Delivery Delivery Date & Time: 11/07/19 at 1908 1 minute Comment: 8 5 minute Comment: 9 Notes living viable female infant weight 8 pounds 5 ounces Condition of Condition of Infant: Living Resuscitation Resuscitation: N/A - Spontaneous Resp L&D Stage3 Stage Three Stage III Date: Nov 07, 2019 Pictocin Pitocin Administration mu/min: 14 Pitocin ml/hr: 14 Pitocin Administration Comment: 30 milunits wide open at delivery of placenta Placenta Delivery Placenta Delivery: Spontaneous Delivery Summary Summary Estimated blood loss (mL): 350 Attending at delivery: Hi Ribera DO Condition of Delivery Examined: Cervix Examined, Uterus Explored Post Hemorrhage: No Condition of Mother stable Condition of Infant (s) stable JEN CRABTREE,MED STUDENT Nov 07, 2019 19:50
[2019-11-07] MEDS ORDERED: OXYTOCIN PRE-MIX DRIP 500 ML IV SCH (19:56)
[2019-11-07] MEDS ORDERED: WITCH HAZEL(TUCKS) 40 EA JAR TOP PRN (20:00)
[2019-11-07] MEDS ORDERED: BENZOCAINE/MENTHOL (DERMOPLAST) 60 ML CAN TP PRN (20:00)
[2019-11-07] MEDS ORDERED: TETANUS,DIPTH,PERTUSS P/F (BOOSTRIX) 0.5 ML VIAL IM ONE (20:00)
[2019-11-07] MEDS ORDERED: DIBUCAINE (NUPERCAINAL) 1% OINT 30 GM TOP PRN (20:00)
[2019-11-07] MEDS ORDERED: MEASLES,MUMPS,RUBELLA 1 EA INJ SQ ONE (20:00)
[2019-11-07] MEDS ORDERED: HYDROcodone/APAP 5 MG/325 MG (LORTAB) TAB PO PRN (20:00)
[2019-11-07] MEDS ORDERED: DIBU30OI TOP (20:07)
[2019-11-07] MEDS ORDERED: DCS100C PO (20:07)
[2019-11-07] MEDS ORDERED: BENZ78AE2 TP (20:07)
[2019-11-07] MEDS ORDERED: FERR325T18 PO (20:07)
[2019-11-07] MEDS ORDERED: HYDR-83 PO (20:07)
[2019-11-07] MEDS ORDERED: IBUP-844 PO (20:07)
--- NOTE | 2019-11-07 20:08 | Discharge Inst-Women's Service ---
Discharge Inst-Women's Serv Depart Medication/Instructions New, Converted or Re-Newed RX: RX on Chart Final Diagnosis PPD 2 NVD Problems Reviewed?: Yes Consults/Follow Up Additional Follow Up: Yes Orders/Referrals Dr. Velazquez in 6 weeks Activity Activity: Activity as Tolerated Driving Instructions: No Driving for 1 Week NO SMOKING: NO SMOKING Nothing Inside Vagina: No Douching, No [place], No Tampons Diet Discharge Diet: No Restrictions Symptoms to Report to : Bleeding Excessive, Pain Increased, Fever Over 101 Degrees F, Vaginal Bleeding Increase, Questions/Concerns For Any Problems or Questions: Contact Your Physician ALEXANDRE VELAZQUEZ DO Nov 07, 2019 20:08
[2019-11-07] MEDS: IBUPROFEN 600 MG (MOTRIN) TAB PO SCH (20:49)
[2019-11-07] MEDS: DOCUSATE SODIUM 100 MG (COLACE) CAP PO SCH (21:00)
--- NOTE | 2019-11-07 21:00 | NUR ---
Pt moved to PP room per protocol.
[2019-11-08] VITALS: BP 93/50
[2019-11-08] MEDS: IBUPROFEN 600 MG (MOTRIN) TAB PO SCH ×4 (02:25→21:47)
[2019-11-08 04:00] VITALS: BP 114/56
[2019-11-08 05:39] LABS: BASOPHILS % (AUTO) 0 % (0-10); EOSINOPHILS % (AUTO) 0 % (0-10); HEMATOCRIT 28 % (35-52); HEMOGLOBIN 9.4 G/DL (11.5-16.0); LYMPHOCYTES # (AUTO) 3.3 X 10^3 (1.0-4.0); LYMPHOCYTES % (AUTO) 24 % (12-44); MEAN CORPUSCULAR HEMOGLOBIN 31 PG (25-34); MEAN CORPUSCULAR HGB CONC 34 G/DL (32-36); MEAN CORPUSCULAR VOLUME 92 FL (80-99); MEAN PLATELET VOLUME 9.8 FL (7.4-10.4); MONOCYTES # (AUTO) 0.7 X 10^3 (0.0-1.0); MONOCYTES % (AUTO) 5 % (0-12); NEUTROPHILS % (AUTO) 71 % (42-75); PLATELET COUNT 219 10^3/uL (130-400); RED CELL DISTRIBUTION WIDTH 13.2 % (10.0-14.5); WHITE BLOOD COUNT 14.1 10^3/uL (4.3-11.0)
--- NOTE | 2019-11-08 08:45 | NUR ---
To room for meds and assessment. Pt attempting to breastfeed at this time. Will return.
[2019-11-08 10:07] VITALS: BP 115/62
[2019-11-08] MEDS: FERROUS SULF 325 MG (IRON) TAB PO SCH (10:14)
[2019-11-08] MEDS: PRENATAL VITAMIN 1 EA TAB PO SCH (10:15)
[2019-11-08] MEDS: DOCUSATE SODIUM 100 MG (COLACE) CAP PO SCH ×2 (10:15→21:47)
--- NOTE | 2019-11-08 10:59 | Anesthesia-Regional Post-Op ---
Regional Patient Condition Mental Status: Alert, Oriented x3 Circulation: Same as Pre-Op Headache: Absent Sensation: Full Recovery Motor Block: Absent Post Op Complications Complications None Follow Up Care/Instructions Patient Instructions None needed. Anesthesia/Patient Condition Patient is doing well, no complaints, stable vital signs, no apparent adverse anesthesia problems. No complications reported per nursing. JULIEN YOU DIRECTOR OF [employer] RELATIONS Nov 08, 2019 10:59
--- NOTE | 2019-11-08 11:02 | Postpartum Progress Note ---
Note Note Day # 1 Subjective: Patient is without complaints. Ambulating, voiding. Tolerating a regular diet without nausea or vomiting. Normal lochia. Pain is well controlled with oral pain medications. Objective: Physical Exam: General - Alert and oriented, no apparent distress Abdomen - Soft, appropriately tender to palpation, non-distended, fundus firm at umbilicus Extremities - no edema, negative Jennifer's bilaterally Assessment: PPD 1 NVD Acute blood loss anemia Plan: Routine care. Encourage breast feeding. Encourage ambulation. Ferrous sulfate supplementation. Plan for discharge tomorrow Vitals - Labs Vital Signs - I&O Vital Signs Date Time Temp Pulse Resp B/P (MAP) Pulse Ox O2 Delivery O2 Flow Rate FiO2 11/08/19 10:07 36.9 110 18 115/62 (79) 98 Room Air 11/08/19 04:00 36.6 102 18 114/56 (75) 96 Room Air 11/08/19 00:00 36.8 90 18 93/50 (64) Room Air 11/07/19 20:30 37.6 89 18 125/68 (87) Room Air 11/07/19 20:15 100 18 127/58 (81) Room Air 11/07/19 20:00 37.2 107 18 124/61 (82) Room Air 11/07/19 19:45 102 18 120/69 (86) Room Air 11/07/19 19:30 106 18 133/60 (84) Room Air 11/07/19 19:12 100 18 191/86 (121) Room Air 11/07/19 19:02 139 18 139/62 (87) Room Air 11/07/19 18:57 133 18 137/105 (116) Room Air 11/07/19 18:52 125 18 139/63 (88) Room Air 11/07/19 18:47 112 18 140/65 (90) Room Air 11/07/19 18:42 109 18 141/104 (116) Room Air 11/07/19 18:38 103 18 132/74 (93) Room Air 11/07/19 18:35 96 18 123/62 (82) Room Air 11/07/19 18:20 125 18 130/71 (90) Room Air 11/07/19 18:15 98 18 130/87 (101) Room Air 7/9/20 18:10 89 18 122/74 (90) Room Air 11/07/19 18:05 18 110/69 (83) Room Air 11/07/19 18:00 126 18 125/62 (83) Room Air 11/07/19 17:50 94 18 115/83 (94) Room Air 11/07/19 17:45 113 18 141/72 (95) Room Air 11/07/19 17:40 101 18 114/78 (90) Room Air 11/07/19 17:35 117 18 168/74 (105) Room Air 11/07/19 17:20 83 18 116/64 (81) Room Air 11/07/19 17:05 84 18 127/78 (94) Room Air 11/07/19 16:50 36.2 85 18 127/78 (94) Room Air 11/07/19 16:20 88 18 110/59 (76) Room Air 11/07/19 16:05 93 18 106/56 (73) Room Air 11/07/19 15:50 92 18 112/60 (77) Room Air 11/07/19 15:35 36.1 83 18 108/60 (76) Room Air 11/07/19 15:20 83 18 125/79 (94) Room Air 11/07/19 15:05 105 18 122/76 (91) Room Air 11/07/19 14:50 83 18 121/76 (91) Room Air 11/07/19 14:20 36.1 87 18 110/51 (70) Room Air 11/07/19 14:05 80 18 96/58 (71) Room Air 11/07/19 13:50 77 18 96/58 (71) Room Air 11/07/19 13:35 83 18 94/57 (69) Room Air 11/07/19 13:20 93 18 99/63 (75) Room Air 11/07/19 13:01 103 18 104/66 (79) 99 Room Air 11/07/19 12:56 91 18 104/69 (81) 99 Room Air 11/07/19 12:51 104 18 107/58 (74) 100 Room Air 11/07/19 12:46 101 18 102/62 (75) 100 Room Air 11/07/19 12:41 102 18 110/68 (82) 100 Room Air 11/07/19 12:36 103 18 104/57 (73) 100 Room Air 11/07/19 12:31 101 18 111/61 (78) 99 Room Air 11/07/19 12:26 112 18 105/62 (76) 98 Room Air 11/07/19 12:21 102 18 113/68 (83) 98 Room Air 11/07/19 12:18 90 18 110/64 (79) 97 Room Air 11/07/19 12:15 90 18 108/66 (80) 97 Room Air 11/07/19 12:12 99 18 82/51 (61) 99 Room Air 11/07/19 12:09 37.0 92 18 98/57 (71) 97 Room Air 11/07/19 12:06 99 18 114/65 (81) 97 Room Air 11/07/19 12:03 94 18 124/76 (92) 98 Room Air 11/07/19 12:00 90 18 133/82 (99) 98 Room Air 11/07/19 11:56 94 18 132/82 (99) 98 Room Air 11/07/19 11:50 90 18 133/74 (93) 99 Room Air 11/07/19 11:35 86 18 126/87 (100) Room Air 11/07/19 11:20 85 18 120/83 (95) Room Air 11/07/19 11:05 83 18 114/82 (93) Room Air I & O 11/08/19 07:00 Intake Total 1500 ml Balance 1500 ml Labs Laboratory Tests 11/08/19 05:24: White Blood Count 14.1H, Red Blood Count 3.02L, Hemoglobin 9.4L, Hematocrit 28L, Mean Corpuscular Volume 92, Mean Corpuscular Hemoglobin 31, Mean Corpuscular Hemoglobin Concent 34, Red Cell Distribution Width 13.2, Platelet Count 219, Mean Platelet Volume 9.8, Neutrophils (%) (Auto) 71, Lymphocytes (%) (Auto) 24, Monocytes (%) (Auto) 5, Eosinophils (%) (Auto) 0, Basophils (%) (Auto) 0, Neutrophils # (Auto) 10.0H, Lymphocytes # (Auto) 3.3, Monocytes # (Auto) 0.7, Eosinophils # (Auto) 0.0, Basophils # (Auto) 0.0 ALEXANDRE VELAZQUEZ DO Nov 08, 2019 11:02 am
--- NOTE | 2019-11-08 13:00 | NUR ---
Dr Ribera here to see pt. No new orders rec'd at this time.
[2019-11-08 15:55] VITALS: BP 117/70
[2019-11-08 21:56] VITALS: BP 126/61
[2019-11-09] MEDS: IBUPROFEN 600 MG (MOTRIN) TAB PO SCH ×2 (03:19→08:33)
[2019-11-09 03:25] VITALS: BP 125/78
--- NOTE | 2019-11-09 05:46 | Postpartum Progress Note ---
Note Note Day # 2 Subjective: Patient is without complaints. Ambulating, voiding. Tolerating a regular diet without nausea or vomiting. Normal lochia. Pain is well controlled with oral pain medications. Objective: Physical Exam: General - Alert and oriented, no apparent distress Abdomen - Soft, appropriately tender to palpation, non-distended, fundus firm at umbilicus Extremities - no edema, negative Jennifer's bilaterally Assessment: PPD 2 NVD Plan: Routine care. Encourage breast feeding. Encourage ambulation. Ferrous sulfate supplementation. Plan for discharge today Vitals - Labs Vital Signs - I&O Vital Signs Date Time Temp Pulse Resp B/P (MAP) Pulse Ox O2 Delivery O2 Flow Rate FiO2 11/09/19 03:25 36.3 76 16 125/78 (94) Room Air 11/08/19 21:56 36.7 106 16 126/61 (82) 96 Room Air 11/08/19 15:55 37.2 110 18 117/70 (86) 99 Room Air 11/08/19 10:07 36.9 110 18 115/62 (79) 98 Room Air ALEXANDRE VELAZQUEZ DO Nov 09, 2019 05:46
[2019-11-09 08:32] VITALS: BP 116/67
[2019-11-09] MEDS: FERROUS SULF 325 MG (IRON) TAB PO SCH (08:33)
[2019-11-09] MEDS: DOCUSATE SODIUM 100 MG (COLACE) CAP PO SCH (08:33)
[2019-11-09] MEDS: PRENATAL VITAMIN 1 EA TAB PO SCH (08:33)
--- NOTE | 2019-11-09 12:00 | NUR ---
PT UP IN THE SHOWER, S/O INQUIRING ABOUT DISMISSAL.
--- NOTE | 2019-11-09 12:23 | NUR ---
DISCHARGE PAPERS PROVIDED AND REVIEWED WITH PT, PT VERBALIZES UNDERSTANDING AND DENIES ANY NEEDS OR QUESTIONS AT THIS TIME. PAPER SIGNED. PRESCRIPTIONS ALSO PROVIDED AT THIS TIME AND PLACED INTO DISCHARGE FOLDER, PT ASKED TO NOT TAKE THE HYDROCODONE RX.
--- NOTE | 2019-11-09 12:55 | NUR ---
PT DISCHARGED FROM -[facility] TO [facility]BULATORY IN STABLE CONDITION ACC BY Humphrey HUTCHINSON RN AND S/O.
[2019-11-09 13:05] VITALS: BP 131/66
== END 2019-11-09 12:55 | disposition home or self-care (01) | DRG 806 ==
LOC: LDRP 05:57
PROVIDERS: ADMIT Obstetrics & Gynecology; ATTEND Obstetrics & Gynecology
PROC: 10E0XZZ Delivery of Products of Conception, External Approach (ICD-10-PCS; principal; 2019-11-07)
PROC: 10907ZC Drainage of Amniotic Fluid, Therapeutic from Products of Conception, Via Natural or Artificial Opening (ICD-10-PCS; 2019-11-07)
PROC: 0UQMXZZ Repair Vulva, External Approach (ICD-10-PCS; 2019-11-07)
DX: O48.0 Post-term pregnancy (principal); D62 Acute posthemorrhagic anemia; Z37.0 Single live birth; Z3A.40 40 weeks gestation of pregnancy; O99.03 Anemia complicating the puerperium; O70.0 First degree perineal laceration during delivery
CPT/HCPCS: 36415; 85025; 86850; 86900; 86901

== ENCOUNTER 2020-03-23 08:11 | Emergency (ER) | payer OTHER, BC ==
[~2020-03-23] VITALS: Ht 172 cm; Wt 74.0 kg
[~2020-03-23 08:11] MED LIST changes: +BENZ78AE5 TP; +DCS100C PO; +DIBU30OI TOP; +FERR325T18 PO; +IBUP-844 PO
--- NOTE | 2020-03-23 08:59 | ED Lower Extremity ---
General Chief Complaint: Lower Extremity Stated Complaint: L FOOT PAIN Nursing Triage Note: ARRIVED VIA AMB TO ROOM 07 USING CRUTCHES. COMPLAINS OF LEFT FOOT PAIN AFTER FALLING ON MONDAY. Nursing Sepsis Screen: No Definite Risk Source: patient Exam Limitations: no limitations History of Present Illness Date Seen by Provider: Mar 23, 2020 Time Seen by Provider: 08:42 Initial Comments Here with complaint of left foot pain after rolling her foot on Monday. She states she was walking next to her driveway when she twisted it. She has been w earing a boot since then but it apparently has a zipper that rubbed on her ankle. She has pain to the medial malleolus and top of the foot. Denies other injury or concerns. Onset: other (2 days ago) Severity: moderate Pain/Injury Location: left foot, left ankle Method of Injury: twisted Modifying Factors: Improves With Immobilization; Worse With Movement; Improves With Rest Allergies and Home Medications Allergies Coded Allergies: Penicillins (Verified Allergy, Mild, RASH, 10/23/18) Home Medications Benzocaine/Menthol 78 Gm Aerosol, 0 ML TP UD PRN for PAIN- SEE INSTRUCTIONS Prescribed by: ALEXANDRE VELAZQUEZ on 11/07/192006 Cephalexin 500 Mg Capsule, 500 MG PO QID, (Reported) Dibucaine 30 Gm Oint, 0 GM TOP UD PRN for PAIN- SEE INSTRUCTIONS Prescribed by: ALEXANDRE VELAZQUEZ on 11/07/192006 Docusate Sodium 100 Mg Capsule, 100 MG PO BID PRN for CONSTIPATION-1ST LINE Prescribed by: ALEXANDRE VELAZQUEZ on 11/07/192006 Ferrous Sulfate 325 Mg Tablet, 325 MG PO DAILY@0800 Prescribed by: ALEXANDRE VELAZQUEZ on 11/07/192006 Hydrocodone/Acetaminophen 1 Each Tablet, 1 TAB PO Q4H PRN for PAIN-MODERATE (5- 7) Prescribed by: ALEXANDRE VELAZQUEZ on 11/07/192006 Ibuprofen 600 Mg Tablet, 600 MG PO Q6H Prescribed by: ALEXANDRE VELAZQUEZ on 11/07/192006 Patient Home Medication List Home Medication List Reviewed: Yes Review of Systems Constitutional: see HPI; No chills, No fever Respiratory: no symptoms reported Cardiovascular: no symptoms reported Musculoskeletal: see HPI, joint pain, joint swelling, muscle pain Skin: change in color, lesions Past Fduzxnq-Pvahfy-Bswjaq Hx Past Med/Social Hx: Reviewed Nursing Past Med/Soc Hx Patient Social History Alcohol Use: Occasionally Uses Alcohol Beverage of Choice: Wine Recreational Drug Use: No Smoking Status: Never a Smoker 2nd Hand Smoke Exposure: No Recent Foreign Travel: No Contact w/Someone Who Travel: No Recent Infectious Disease Expo: No Recent Hopitalizations: No Immunizations Up To Date PED Vaccines UTD: Yes Date of Influenza Vaccine: Jan 29, 2018 Seasonal Allergies Seasonal Allergies: No Past Medical History Surgeries: Yes (wisdom teeth, R shoulder sx) Gallbladder Respiratory: No Cardiac: No Neurological: No Sexually Transmitted Disease: No HIV/AIDS: No Genitourinary: No Gastrointestinal: No Gall Bladder Disease Musculoskeletal: No Endocrine: No HEENT: Yes (GLASSES) Loss of Vision: Denies Hearing Impairment: Denies Cancer: No Psychosocial: No Integumentary: No Blood Disorders: No Adverse Reaction/Blood Tranf: No (N/A) Family Medical History Reviewed Nursing Family Hx Graves' disease 19 MOTHER Physical Exam Vital Signs Vital Signs - First Documented 03/23/20 08:15 Temp 36.5 Pulse 120 Resp 16 B/P (MAP) 152/63 (92) Pulse Ox 94 O2 Delivery Room Air Capillary Refill : Less Than 3 Seconds Height, Weight, BMI Height: 5'8.00" Weight: 186lbs. 6.0oz. 84.812966mr; 25.00 BMI Method: General Appearance: WD/WN, no apparent distress Cardiovascular: regular rate, rhythm, no murmur Respiratory: lungs clear, normal breath sounds Ankles: left ankle pain, left ankle soft tissue tenderness, left ankle swelling , left ankle other (Small abrasion to the medial malleolus) Feet: left foot ecchymosis (Midfoot), left foot pain, left foot soft tissue tenderness, left foot swelling (Midfoot) Neurologic/Psychiatric: alert, oriented x 3 Skin: warm/dry, ecchymosis, other (Abrasion as listed above) Progress/Results/Core Measures Results/Orders My Orders Orders - JW MCLEAN MD Foot, Left, 3 Views (03/23/20 08:46) Ankle, Left, 3 Views (03/23/20 08:46) Vital Signs/I&O 03/23/20 08:15 Temp 36.5 Pulse 120 Resp 16 B/P (MAP) 152/63 (92) Pulse Ox 94 O2 Delivery Room Air Blood Pressure Mean: 92 Progress Progress Note : Progress Note Seen and evaluated. Declined pain medicine. X-ray left foot and ankle ordered. Monitor patient. 1000: X-rays show no acute fracture. Does look like rather significant strain/sprain. We will put her in a walking boot for a few days as well as she will continue to use her crutches. Ice pack given. Discharged home with return precautions. Patient verbalized understanding of instructions and agreement with plan. Diagnostic Imaging Diagonstic Imaging: Xray Plain Films/CT/US/NM/MRI: ankle Comments [facility], [place] NAME: BEN PELRA [facility] REC#: [id number] PT STATUS: REG ER : 1995 PHYSICIAN: JW MCLEAN MD ADMIT DATE: 03/23/20/ER Draft Date of Exam:03/23/20 ANKLE, LEFT, 3 VIEWS EXAMINATION: Left ankle radiographs, 3 views. COMPARISON: None. HISTORY: 24-year-old female, left ankle pain. FINDINGS: There is no identified acute fracture. The alignment of the ankle mortise is unremarkable. There is no tibiotalar joint effusion. The joint spaces are well preserved. There is no prominent focal soft tissue swelling. There is no identified radiopaque foreign body. IMPRESSION: Unremarkable radiographs of the left ankle. Dictated on workstation # [id number] Dict: 03/23/2031 Trans: 03/23/2033 [id number] Interpreted by: MARIANNE JO MD Electronically signed by: Diagonstic Imaging: Xray Plain Films/CT/US/NM/MRI: other Comments [facility], [place] NAME: BEN PERLA [facility] REC#: [id number] PT STATUS: REG ER : 1995 PHYSICIAN: JW MCLEAN MD ADMIT DATE: 03/23/20/ER Draft Date of Exam:03/23/20 FOOT, LEFT, 3 VIEWS EXAMINATION: Left foot radiographs, 3 views. COMPARISON: None. HISTORY: 24-year-old female, left foot pain. FINDINGS: There is a bipartite medial sesamoid. There is soft tissue swelling centered in the region of the metatarsals. There is no identified radiopaque foreign body. There is no identified acute fracture. The joint spaces are well preserved. IMPRESSION: 1. Nonspecific soft tissue swelling at the level of the metatarsals. 2. No identified acute bony abnormality. Dictated on workstation # [id number] Dict: 03/23/20 0932 Trans: 03/23/20 0936 [id number] Interpreted by: MARIANNE JO MD Electronically signed by: Departure Impression Primary Impression: Sprain of left foot Qualified Codes: S93.602A - Unspecified sprain of left foot, initial encounter Additional Impression: Left ankle sprain Qualified Codes: S93.402A - Sprain of unspecified ligament of left ankle, initial encounter Disposition: HOME, SELF-CARE Condition: Stable Departure-Patient Inst. Decision time for Depature: 10:01 Referrals: BRYAN KWOK MD (PCP/Family) Primary Care Physician Patient Instructions: Walking Boot, Ankle Sprain (DC), Foot Sprain (DC) Add. Discharge Instructions: All discharge instructions reviewed with patient and/or family. Voiced understanding. Use walking boot over the next 4 days and then as needed for comfort. Continue use of crutches over the next several days and then as needed. You may take ibuprofen 600 mg every 8 hours as needed for pain. You may also take Tylenol/acetaminophen 1000 mg every 8 hours as needed for pain. Follow-up with your doctor in a few days for recheck. Return for worse pain, fever, vomiting, weakness, breathing problems or other concerns as needed. Use ice packs to area of concern 20 minutes/h as needed over the next 1 to 2 days. Work/School Note: Work Release Form Date Seen in the Emergency Department: Mar 23, 2020 Return to Work: Mar 23, 2020 JW MCLEAN MD Mar 23, 2020 08:59
--- NOTE | 2020-03-23 09:33 | Diagnostic Imaging Report ---
EXAMINATION: Left ankle radiographs, 3 views. COMPARISON: None. HISTORY: 24-year-old female, left ankle pain. FINDINGS: There is no identified acute fracture. The alignment of the ankle mortise is unremarkable. There is no tibiotalar joint effusion. The joint spaces are well preserved. There is no prominent focal soft tissue swelling. There is no identified radiopaque foreign body. IMPRESSION: Unremarkable radiographs of the left ankle. Dictated by: Dictated on workstation # [id number]
--- NOTE | 2020-03-23 09:37 | Diagnostic Imaging Report ---
EXAMINATION: Left foot radiographs, 3 views. COMPARISON: None. HISTORY: 24-year-old female, left foot pain. FINDINGS: There is a bipartite medial sesamoid. There is soft tissue swelling centered in the region of the metatarsals. There is no identified radiopaque foreign body. There is no identified acute fracture. The joint spaces are well preserved. IMPRESSION: 1. Nonspecific soft tissue swelling at the level of the metatarsals. 2. No identified acute bony abnormality. Dictated by: Dictated on workstation # [id number]
--- NOTE | 2020-03-23 09:55 | NUR ---
IN TALKING TO THE PT AT THIS TIME.
[2020-03-23 10:21] VITALS: BP 152/63
== END 2020-03-23 10:21 | disposition home or self-care (01) ==
LOC: EDUNIT# 08:11 → ER 08:12
DX: S93.602A Unspecified sprain of left foot, initial encounter (principal); S93.402A Sprain of unspecified ligament of left ankle, initial encounter; Z88.0 Allergy status to penicillin; X50.1XXA Overexertion from prolonged static or awkward postures, initial encounter
CPT/HCPCS: 73610; 73630; 99282; L2114

== ENCOUNTER → 2020-04-15 | Outpatient (CLI) | payer OTHER, BC ==
--- NOTE | 2020-04-15 17:06 | Diagnostic Imaging Report ---
Indication: Left medial foot injury, trauma 3 views of the left foot show no fracture, dislocation or other acute abnormalities. IMPRESSION: Negative left foot Dictated by: Dictated on workstation # [id number]
== END ==
LOC: RAD
PROVIDERS: ATTEND Family Medicine
DX: S99.922A Unspecified injury of left foot, initial encounter (principal); X58.XXXA Exposure to other specified factors, initial encounter
CPT/HCPCS: 73630

== ENCOUNTER 2021-05-01 17:04 | Emergency (ER) | payer OTHER ==
[~2021-05-01] VITALS: Ht 167 cm; Wt 80.0 kg
[~2021-05-01 17:04] MED LIST changes: -DCS100C PO; +DOCU-239 PO
[2021-05-01] MEDS ORDERED: fentaNYL INJ 100 MCG/2 ML AMP IVP ONE ×2 (17:45→19:30)
[2021-05-01] MEDS ORDERED: NS IV 1000 ML 1,000 ML ONE (17:45)
[2021-05-01] MEDS ORDERED: LACTATED RINGERS 1,000 ML IV SCH (17:45)
--- NOTE | 2021-05-01 17:50 | ED Abdominal Pain ---
General Chief Complaint: Abdominal/GI Problems Stated Complaint: RLQ PAIN Nursing Triage Note: Pt here with RLQ pain with n/v/d since this morning. Source of Information: Patient Exam Limitations: No Limitations (MONICA AMADO APRN) History of Present Illness Date Seen by Provider: May 01, 2021 Time Seen by Provider: 17:49 Initial Comments To ER with right lower quadrant abdominal pain that she awakened with this morning. Has been n.p.o. since last night at about 11 PM. Vomited once today. History of cholecystectomy. Timing/Duration: 12 Hours Severity/Quality: Moderate Location: RLQ Radiation: No Radiation Activities at Onset: None (MONICA AMADO APRN) Allergies and Home Medications Allergies Coded Allergies: Penicillins (Verified Allergy, Mild, RASH, 10/23/18) Patient Home Medication List Home Medication List Reviewed: Yes (MONICA AMADO APRN) Benzocaine/Menthol (Dermoplast Pain Relieving [place]) 78 Gm Aerosol, 0 ML TP UD PRN for PAIN- SEE INSTRUCTIONS Prescribed by: ALEXANDRE VELAZQUEZ on 11/07/192006 Cephalexin (Keflex) 500 Mg Capsule, 500 MG PO QID, (Reported) Entered as Reported by: BAILEE ORTIZ on 10/17/19 0905 Dibucaine (Dibucaine) 30 Gm Oint, 0 GM TOP UD PRN for PAIN- SEE INSTRUCTIONS Prescribed by: ALEXANDRE VELAZQUEZ on 11/07/192006 Docusate Sodium (Dok) 100 Mg Capsule, 100 MG PO BID PRN for CONSTIPATION-1ST LINE Prescribed by: ALEXANDRE VELAZQUEZ on 11/07/192006 Ferrous Sulfate (Ferrous Sulfate) 325 Mg Tablet, 325 MG PO DAILY@0800 Prescribed by: ALEXANDRE VELAZQUEZ on 11/07/192006 Hydrocodone/Acetaminophen (Hydrocodone-Acetamin 5-325 mg) 1 Each Tablet, 1 TAB PO Q4H PRN for PAIN-MODERATE (5-7) Prescribed by: ALEXANDRE VELAZQUEZ on 11/07/192006 Ibuprofen (Ibu) 600 Mg Tablet, 600 MG PO Q6H Prescribed by: ALEXANDRE VELAZQUEZ on 11/07/19 2007 Review of Systems Review of Systems Constitutional: see HPI EENTM: No Symptoms Reported Respiratory: No Symptoms Reported Cardiovascular: No Symptoms Reported Gastrointestinal: See HPI, Abdominal Pain, Nausea Genitourinary: No Symptoms Reported Musculoskeletal: no symptoms reported Skin: no symptoms reported Psychiatric/Neurological: No Symptoms Reported Endocrine: No Symptoms Reported Hematologic/Lymphatic: No Symptoms Reported (MONICA AMADO APRN) Past Pmuxevz-Qvjmfj-Dklxgy Hx Immunizations Up To Date PED Vaccines UTD: Yes (MONICA AMADO APRN) Seasonal Allergies Seasonal Allergies: No (MONICA AMADO APRN) Past Medical History Surgeries: Yes (wisdom teeth, R shoulder sx) Gallbladder Respiratory: No Cardiac: No Neurological: No Sexually Transmitted Disease: No HIV/AIDS: No Genitourinary: No Gastrointestinal: No Gall Bladder Disease Musculoskeletal: No Endocrine: No HEENT: Yes (GLASSES) Loss of Vision: Denies Hearing Impairment: Denies Cancer: No Psychosocial: No Integumentary: No Blood Disorders: No Adverse Reaction/Blood Tranf: No (N/A) (MONICA AMADO APRN) Family Medical History Graves' disease 19 MOTHER Physical Exam Vital Signs Vital Signs - First Documented 05/01/21 17:15 Temp 37.5 Pulse 136 Resp 18 B/P (MAP) 101/73 (82) Pulse Ox 100 O2 Delivery Room Air (JOSEE MCMAHAN MD) Vital Signs Capillary Refill : Less Than 3 Seconds (MONICA AMADO APRN) Height/Weight/BMI Height: 5'8.00" Weight: 186lbs. 6.0oz. 84.982682vb; 28.00 BMI Method: General Appearance: WD/WN, no apparent distress Respiratory: lungs clear, normal breath sounds, no respiratory distress, no accessory muscle use Cardiovascular: no murmur, tachycardia Gastrointestinal: normal bowel sounds, soft, tenderness Extremities: normal range of motion, non-tender Neurologic/Psychiatric: alert, normal mood/affect, oriented x 3 Skin: normal color, warm/dry (MONICA AMADO APRN) Progress/Results/Core Measures Results/Orders Lab Results Laboratory Tests Test 05/01/21 17:40 05/01/21 17:53 Range/Units White Blood Count 5.9 4.3-11.0 10^3/uL Red Blood Count 4.95 3.80-5.11 10^6/uL Hemoglobin 14.7 11.5-16.0 g/dL Hematocrit 43 35-52 % Mean Corpuscular Volume 87 80-99 fL Mean Corpuscular Hemoglobin 30 25-34 pg Mean Corpuscular Hemoglobin Concent 34 32-36 g/dL Red Cell Distribution Width 12.0 10.0-14.5 % Platelet Count 309 130-400 10^3/uL Mean Platelet Volume 9.5 9.0-12.2 fL Immature Granulocyte % (Auto) 0 % Neutrophils (%) (Auto) 79 H 42-75 % Lymphocytes (%) (Auto) 16 12-44 % Monocytes (%) (Auto) 4 0-12 % Eosinophils (%) (Auto) 1 0-10 % Basophils (%) (Auto) 0 0-10 % Neutrophils # (Auto) 4.7 1.8-7.8 10^3/uL Lymphocytes # (Auto) 1.0 1.0-4.0 10^3/uL Monocytes # (Auto) 0.3 0.0-1.0 10^3/uL Eosinophils # (Auto) 0.0 0.0-0.3 10^3/uL Basophils # (Auto) 0.0 0.0-0.1 10^3/uL Immature Granulocyte # (Auto) 0.0 0.0-0.1 10^3/uL Sodium Level 139 135-145 MMOL/L Potassium Level 3.7 3.6-5.0 MMOL/L Chloride Level 109 H 98-107 MMOL/L Carbon Dioxide Level 17 L 21-32 MMOL/L Anion Gap 13 5-14 MMOL/L Blood Urea Nitrogen 12 7-18 MG/DL Creatinine 0.86 0.60-1.30 MG/DL Estimat Glomerular Filtration Rate 80 BUN/Creatinine Ratio 14 Glucose Level 102 70-105 MG/DL Calcium Level 9.7 8.5-10.1 MG/DL Corrected Calcium 8.5-10.1 MG/DL Total Bilirubin 1.1 H 0.1-1.0 MG/DL Aspartate Amino Transf (AST/SGOT) 19 5-34 U/L Alanine Aminotransferase (ALT/SGPT) 29 0-55 U/L Alkaline Phosphatase 100 40-136 U/L Total Protein 7.5 6.4-8.2 GM/DL Albumin 4.7 H 3.2-4.5 GM/DL Serum Test, Qualitative NEGATIVE NEGATIVE Urine Color YELLOW Urine Clarity CLEAR Urine pH 6.0 5-9 Urine Specific [place] >=1.030 1.016-1.022 Urine Protein TRACE H NEGATIVE Urine Glucose (UA) NEGATIVE NEGATIVE Urine Ketones NEGATIVE NEGATIVE Urine Nitrite NEGATIVE NEGATIVE Urine Bilirubin 1+ H NEGATIVE Urine Urobilinogen 0.2 < = 1.0 MG/DL Urine Leukocyte Esterase NEGATIVE NEGATIVE Urine RBC (Auto) 1+ H NEGATIVE Urine RBC 0-2 /HPF Urine WBC 0-2 /HPF Urine Squamous Epithelial Cells 0-2 /HPF Urine Crystals PRESENT H /LPF Urine Amorphous Sediment LARGE VIOLETA URATES H /LPF Urine Bacteria FEW H /HPF Urine Casts NONE /LPF Urine Mucus NEGATIVE /LPF Urine Culture Indicated YES (JOSEE MCMAHAN MD) Medications Given in ED Current Medications Medications Dose Ordered Sig/Corona Route Start Time Stop Time Status Last Admin Dose Admin Fentanyl Citrate 50 mcg ONCE ONCE IVP 05/01/21 19:30 05/01/21 19:31 DC 05/01/21 19:29 50 MCG Ketorolac Tromethamine 15 mg ONCE ONCE IVP 05/01/21 20:15 05/01/21 20:16 DC 05/01/21 20:12 15 MG (JOSEE MCMAHAN MD) Vital Signs/I&O 05/01/21 05/01/21 05/01/21 05/01/21 17:15 18:53 19:31 20:19 Temp 37.5 Pulse 136 112 110 112 Resp 18 18 16 18 B/P (MAP) 101/73 (82) 115/73 111/77 112/72 Pulse Ox 100 99 99 99 O2 Delivery Room Air Room Air Room Air 05/02/21 00:00 Intake Total 1000 ml Balance 1000 ml (JOSEE MCMAHAN MD) Blood Pressure Mean: 82 Departure Communication (Admissions) NAME: BEN SING[facility] REC#: [id number] PT STATUS: REG ER : 1995 PHYSICIAN: MONICA AMADO APRN ADMIT DATE: 05/01/21/ER Draft Date of Exam:05/01/21 CT ABD/PELV W (APPENDICITIS) CLINICAL INDICATION: Patient with right lower quadrant pain with nausea, vomiting and diarrhea since this morning. EXAM: Axial CT scan of the abdomen and pelvis performed with 100 mL of Omnipaque 350 IV contrast. Sagittal and coronal reformatted images were created. Auto Exposure Controls were utilized during the CT exam to meet ALARA standards for radiation dose reduction. COMPARISON: None. FINDINGS: There is mild bibasilar atelectasis. There is chronic bilateral L5 spondylolysis with grade 1 anterolisthesis of L5 on S1. The gallbladder is not visualized and may be surgically absent or decompressed. The liver, spleen, pancreas and adrenal glands are unremarkable. Both kidneys are unremarkable with no hydronephrosis, mass or stone. Bladder is predominantly decompressed and grossly unremarkable, as visualized. The uterus and adnexal regions were unremarkable. There are multiple loops of wall thickening involving the jejunum. There is also a mildly dilated short segment of dilated jejunum overlying the left of midline abdomen with air-fluid level measuring 3.3 cm. There is mesenteric lymphadenopathy seen in the SMA region and adjacent to the diseased appearing jejunum. There is fluid within the ileum, ascending colon and transverse colon. The descending and sigmoid colon are decompressed. There is no intra-abdominal free air or free fluid. The appendix is unremarkable. The extra-abdominal soft tissue is unremarkable. IMPRESSION: 1: There are multiple jejunal loops of wall thickening. There is even a short segment of dilated jejunum with air-fluid levels. There is mesenteric lymphadenopathy. These findings are concerning for infectious or inflammatory enteritis. 2: There is fluid within the ileum, ascending colon and transverse colon. This may be related to patient's history of diarrhea. 3: The remainder of this exam shows no other significant abnormality. Dictated on workstation # [id number] Dict: 05/01/211944 Trans: 05/01/211954 [facility] [id number] Interpreted by: LEA PETIT MD Electronically signed by: (MONICA AMADO APRN) Impression Primary Impression: Gastroenteritis Disposition: HOME, SELF-CARE Condition: Stable Departure-Patient Inst. Decision time for Depature: 19:58 (MONICA AMADO APRN) Referrals: BRYAN KWOK MD (PCP/Family) Primary Care Physician Patient Instructions: [id number] Add. Discharge Instructions: 1. Clear liquids only for the next 24 hours. I would expect you to develop some diarrhea in the upcoming hours. Your appendix is normal. You have the appearance of a lot of liquid stool within your bowels and some enlarged lymph nodes within the mesentery and abdomen. There is no bowel obstruction or abscess or other cause for concern. Return to ER for high fevers, intolerable pain, bloody diarrhea. Follow-up with your doctor next week for recheck. All discharge instructions reviewed with patient and/or family. Voiced understanding. Work/School Note: Work Release Form Date Seen in the Emergency Department: May 01, 2021 Return to Work: May 04, 2021 ATTENDING PHYSICIAN NOTE: I was physically present as attending physician in the emergency department during the care of this patient, but I was not directly involved in the decision making or delivery of care for this patient. (JOSEE MCMAHAN MD) MONICA AMADO APRN May 01, 2021 17:50 JOSEE MCMAHAN MD May 02, 2021 06:17
[2021-05-01 17:55] LABS: BASOPHILS % (AUTO) 0 % (0-10); EOSINOPHILS % (AUTO) 1 % (0-10); HEMATOCRIT 43 % (35-52); HEMOGLOBIN 14.7 g/dL (11.5-16.0); LYMPHOCYTES % (AUTO) 16 % (12-44); MEAN CORPUSCULAR HEMOGLOBIN 30 pg (25-34); MEAN CORPUSCULAR HGB CONC 34 g/dL (32-36); MEAN CORPUSCULAR VOLUME 87 fL (80-99); MEAN PLATELET VOLUME 9.5 fL (9.0-12.2); MONOCYTES # (AUTO) 0.3 10^3/uL (0.0-1.0); MONOCYTES % (AUTO) 4 % (0-12); NEUTROPHILS # (AUTO) 4.7 10^3/uL (1.8-7.8); NEUTROPHILS % (AUTO) 79 % (42-75); PLATELET COUNT 309 10^3/uL (130-400); WHITE BLOOD COUNT 5.9 10^3/uL (4.3-11.0)
[2021-05-01] MEDS ORDERED: NS IV 1000 ML 1,000 ML IV SCH (18:00)
[2021-05-01 18:05] LABS: CLARITY,URINE CLEAR; COLOR,URINE YELLOW; GLUCOSE, URINE (UA) NEGATIVE (NEGATIVE); KETONES,URINE NEGATIVE (NEGATIVE); LEUKOCYTE ESTERASE ,URINE NEGATIVE (NEGATIVE); NITRITE,URINE NEGATIVE (NEGATIVE); PROTEIN,URINE TRACE (NEGATIVE)
[2021-05-01 18:06] LABS: ALBUMIN 4.7 GM/DL (3.2-4.5); CHLORIDE 109 MMOL/L (98-107); POTASSIUM 3.7 MMOL/L (3.6-5.0); SODIUM 139 MMOL/L (135-145)
[2021-05-01 18:07] LABS: CALCIUM 9.7 MG/DL (8.5-10.1)
[2021-05-01 18:08] LABS: GLUCOSE 102 MG/DL (70-105); TOTAL PROTEIN 7.5 GM/DL (6.4-8.2)
[2021-05-01 18:09] LABS: CARBON DIOXIDE 17 MMOL/L (21-32)
[2021-05-01 18:10] LABS: BILIRUBIN,TOTAL 1.1 MG/DL (0.1-1.0)
[2021-05-01 18:12] LABS: ALKALINE PHOSPHATASE 100 U/L (40-136); CREATININE SERUM 0.86 MG/DL (0.60-1.30); GFR ESTIMATED 80
[2021-05-01 18:13] LABS: BUN/CREATININE RATIO 14
[2021-05-01 18:15] LABS: ALANINE AMINOTRANSFERASE 29 U/L (0-55)
[2021-05-01] MEDS ORDERED: NS 100 ML (IVPB) BAG IV ONE (18:15)
[2021-05-01] MEDS ORDERED: IOHEXOL 350 MG/ML 100 ML (OMNIPAQUE 350) VIAL IV ONE (18:15)
[2021-05-01] MEDS ORDERED: HOLD METFORMIN - RECEIVED CONTRAST 20 ML VIAL IV SCH (18:15)
[2021-05-01 18:25] LABS: RBC,URINE 0-2 /HPF
[2021-05-01 18:30] LABS: AMORPHOUS SEDIMENT,UR LARGE AMOR URATES /LPF; BACTERIA,URINE FEW /HPF; BILIRUBIN,URINE 1+ (NEGATIVE); SQUAMOUS EPITHELIAL CELL,UR 0-2 /HPF; WBC,URINE 0-2 /HPF
--- NOTE | 2021-05-01 19:57 | Diagnostic Imaging Report ---
CLINICAL INDICATION: Patient with right lower quadrant pain with nausea, vomiting and diarrhea since this morning. EXAM: Axial CT scan of the abdomen and pelvis performed with 100 mL of Omnipaque 350 IV contrast. Sagittal and coronal reformatted images were created. Auto Exposure Controls were utilized during the CT exam to meet ALARA standards for radiation dose reduction. COMPARISON: None. FINDINGS: There is mild bibasilar atelectasis. There is chronic bilateral L5 spondylolysis with grade 1 anterolisthesis of L5 on S1. The gallbladder is not visualized and may be surgically absent or decompressed. The liver, spleen, pancreas and adrenal glands are unremarkable. Both kidneys are unremarkable with no hydronephrosis, mass or stone. Bladder is predominantly decompressed and grossly unremarkable, as visualized. The uterus and adnexal regions were unremarkable. There are multiple loops of wall thickening involving the jejunum. There is also a mildly dilated short segment of dilated jejunum overlying the left of midline abdomen with air-fluid level measuring 3.3 cm. There is mesenteric lymphadenopathy seen in the SMA region and adjacent to the diseased appearing jejunum. There is fluid within the ileum, ascending colon and transverse colon. The descending and sigmoid colon are decompressed. There is no intra-abdominal free air or free fluid. The appendix is unremarkable. The extra-abdominal soft tissue is unremarkable. IMPRESSION: 1: There are multiple jejunal loops of wall thickening. There is even a short segment of dilated jejunum with air-fluid levels. There is mesenteric lymphadenopathy. These findings are concerning for infectious or inflammatory enteritis. 2: There is fluid within the ileum, ascending colon and transverse colon. This may be related to patient's history of diarrhea. 3: The remainder of this exam shows no other significant abnormality. Dictated by: Dictated on workstation # [id number]
[2021-05-01] MEDS ORDERED: RX-HYOSCYAMINE 0.125 MG SL (LEVSIN) PPK#6 SL STA (20:04)
[2021-05-01] MEDS ORDERED: KETOROLAC 30 MG/ML VIAL IVP ONE (20:15)
[2021-05-01 20:19] VITALS: BP 112/72
== END 2021-05-01 20:20 | disposition home or self-care (01) ==
LOC: EDUNIT# 17:04 → ER 17:08
DX: K52.9 Noninfective gastroenteritis and colitis, unspecified (principal); Z90.49 Acquired absence of other specified parts of digestive tract
CPT/HCPCS: 36415; 74177; 80053; 81000; 84703; 85025; 87088

== ENCOUNTER → 2022-12-05 | Outpatient (CLI) | payer OTHER ==
--- NOTE | 2022-12-05 17:47 | Diagnostic Imaging Report ---
INDICATION: Supervision of normal . COMPARISON: None. TECHNIQUE: Multiple real-time grayscale images were obtained over the gravid uterus. FINDINGS: There is a single live intrauterine gestation in breech presentation. The placenta is to the maternal left, without evidence of previa shown. The tip is 3.3 cm away from the internal os. The nose and lips are seen. The lateral ventricle is seen. The cord insertion is seen. heart rate measures 156 BPM. Upper extremities are present. The stomach is seen. The kidneys are seen. A four-chamber heart is seen. Two umbilical arteries are present. The bladder is seen. The cerebellum and cisterna magna are seen. The amniotic fluid index measures 15.5 cm. The right ventricular outflow tract is seen. The left ventricular outflow tract is seen. The spine is suboptimally visualized due to lie. Biometrical measurements are as follows: Biparietal 4.57 cm, age 19 weeks 6 days. Head circumference 17.48 cm, age 20 weeks 1 days. Abdominal circumference 13.61 cm, age 19 weeks 1 days. Femur length 3.24 cm, age 20 weeks 1 days. Sonographic estimate age: 19 weeks 6 days. Sonographic estimated date of delivery: 04/25/2023. Estimated Weight: 302 gm (+/- 44 gm). LMP percentile: 56%. heart rate: 156 beats per minute. number: 1 of 1. IMPRESSION: 1. Single live intrauterine gestation measuring at 19 weeks and 6 days which is within range of the clinical dates. 2. No abnormality seen on anatomic survey. The spine is suboptimally visualized due to lie. 3. Breech presentation. Dictated by: Dictated on workstation # [id number]
== END ==
LOC: RAD 13:00
PROVIDERS: ATTEND Nurse Practitioner Women's Health
DX: Z34.02 Encounter for supervision of normal first pregnancy, second trimester (principal); Z3A.19 19 weeks gestation of pregnancy
CPT/HCPCS: 76805

== ENCOUNTER 2023-04-04 14:49 | Outpatient (CLI) | payer OTHER ==
[2023-04-04] VITALS (9 sets, daily range): BP systolic 111–125; BP diastolic 57–74
[~2023-04-04] VITALS: Ht 167.4 cm; Wt 80.0 kg
[2023-04-04] MEDS ORDERED: NS IV 1000 ML 1,000 ML ONE (15:08)
[2023-04-04] MEDS ORDERED: D5 LR 1,000 ML IV SOLN 1,000 ML IV ONE (15:08)
[2023-04-04] MEDS ORDERED: ONDANSETRON INJECTION 4 MG/2 ML (SDV) ONE (15:08)
[2023-04-04] MEDS ORDERED: NS IV 1000 ML 1,000 ML IV ONE (15:30)
[2023-04-04] MEDS: ONDANSETRON INJECTION 4 MG/2 ML (SDV) IVP PRN ×3 (15:41→21:23)
[2023-04-04 16:17] LABS: BASOPHILS % (AUTO) 0 % (0-10); EOSINOPHILS % (AUTO) 0 % (0-10); HEMATOCRIT 34 % (35-52); HEMOGLOBIN 11.2 g/dL (11.5-16.0); LYMPHOCYTES % (AUTO) 13 % (12-44); MEAN CORPUSCULAR HEMOGLOBIN 30 pg (25-34); MEAN CORPUSCULAR HGB CONC 33 g/dL (32-36); MEAN CORPUSCULAR VOLUME 91 fL (80-99); MONOCYTES # (AUTO) 0.5 10^3/uL (0.0-1.0); MONOCYTES % (AUTO) 3 % (0-12); NEUTROPHILS # (AUTO) 13.3 10^3/uL (1.8-7.8); NEUTROPHILS % (AUTO) 83 % (42-75); PLATELET COUNT 226 10^3/uL (130-400)
[2023-04-04 16:28] LABS: ALBUMIN 3.4 GM/DL (3.2-4.5)
[2023-04-04 16:30] LABS: CALCIUM 9.2 MG/DL (8.5-10.1)
[2023-04-04 16:31] LABS: TOTAL PROTEIN 6.7 GM/DL (6.4-8.2)
[2023-04-04 16:32] LABS: BILIRUBIN,TOTAL 0.7 MG/DL (0.1-1.0)
[2023-04-04 16:34] LABS: CREATININE SERUM 0.6 MG/DL (0.60-1.30)
[2023-04-04 16:45] LABS: BACTERIA,URINE FEW /HPF; BILIRUBIN,URINE NEGATIVE (NEGATIVE); CLARITY,URINE CLEAR; COLOR,URINE YELLOW; GLUCOSE, URINE (UA) NEGATIVE (NEGATIVE); KETONES,URINE 4+ (NEGATIVE); LEUKOCYTE ESTERASE ,URINE TRACE (NEGATIVE); NITRITE,URINE NEGATIVE (NEGATIVE); PROTEIN,URINE NEGATIVE (NEGATIVE); WBC,URINE 0-2 /HPF
[2023-04-04 16:49] LABS: BAND NEUTROPHILS 0 %; BASOPHILS % (MANUAL) 0 %; EOSINOPHILS % (MANUAL) 0 %; LYMPHOCYTES % (MANUAL) 16 %; MONOCYTES % (MANUAL) 3 %; NEUTROPHILS % (MANUAL) 81 %; RBC MORPH NORMAL
[2023-04-04] MEDS: D5 LR 1,000 ML IV SOLN 1,000 ML IV SCH ×2 (16:56→23:13)
[2023-04-04] MEDS ORDERED: ceFAZolin INJECTION 1,000 MG in NS (IVPB) 50 ML 50 ML IV ONE (17:00)
[2023-04-05 04:58] VITALS: BP 115/63
[2023-04-05] MEDS: D5 LR 1,000 ML IV SOLN 1,000 ML IV SCH (05:54)
--- NOTE | 2023-04-05 07:40 | History & Physical-OB ---
OB - Chief Complaint & HPI Date/Time Date of Admission: Date of Admission: Date seen by a Provider: Apr 04, 2023 Time Seen by a Provider: 17:30 Chief Complaint/History OB-Reason for Admission/Chief: Hx : 3 Hx Para: 1 Expected Date of Delivery: Apr 28, 2023 Gestational Age in Weeks: 36 Gestational Age in Days: 4 Other reason for admission: Patient admitted for Obs yesterday from work after having diarrhea and nely regularly. She was not feeling the contractions but there were regular on tocometry. She also had episodes of nausea/ and vomiting Admission Nurse Assessment Rev: Yes Allergies and Home Medications Allergies Coded Allergies: Penicillins (Verified Allergy, Mild, RASH, 10/23/18) Patient Home Medication List Home Medication List Reviewed: Yes Benzocaine/Menthol (Dermoplast Pain Relieving [place]) 78 Gm Aerosol, 0 ML TP UD PRN for PAIN- SEE INSTRUCTIONS Prescribed by: ALEXANDRE VELAZQUEZ on 11/07/192006 Cephalexin (Keflex) 500 Mg Capsule, 500 MG PO QID, (Reported) Entered as Reported by: BAILEE ORTIZ on 10/17/19 0905 Dibucaine (Dibucaine) 30 Gm Oint, 0 GM TOP UD PRN for PAIN- SEE INSTRUCTIONS Prescribed by: ALEXANDRE VELAZQUEZ on 11/07/192006 Docusate Sodium (Dok) 100 Mg Capsule, 100 MG PO BID PRN for CONSTIPATION-1ST LINE Prescribed by: ALEXANDRE VELAZQUEZ on 11/07/192006 Ferrous Sulfate (Ferrous Sulfate) 325 Mg Tablet, 325 MG PO DAILY@0800 Prescribed by: ALEXANDRE VELAZQUEZ on 11/07/192006 Hydrocodone/Acetaminophen (Hydrocodone-Acetamin 5-325 mg) 1 Each Tablet, 1 TAB PO Q4H PRN for PAIN-MODERATE (5-7) Prescribed by: ALEXANDRE VELAZQUEZ on 11/07/192006 Ibuprofen (Ibu) 600 Mg Tablet, 600 MG PO Q6H Prescribed by: ALEXANDRE VELAZQUEZ on 11/07/192006 OB - History Hx of Present Care: Yes Ultrasounds: Normal mid trimester US Obstetrical Complications: None Medical Complications: None Obstetrical History Hx : 3 Hx Para: 1 Hx Total # of Abortions (Spona: 1 Delivery History Adverse Rxn to Tranfusion: No (N/A) Patient Past Medical History n/a Social History/Family History Recreational Drug Use: No 2nd Hand Smoke Exposure: No Immunizations Influenza Vaccine Up-to-Date: Yes; Up-to-Date First/Initial COVID19 Vaccine: March 2020 Second COVID19 Vaccination: May 2020 Hepatitis A: Yes Hepatitis B: Yes OB - Admission Exam Physical Exam Vitals: Vital Signs 04/05/23 04:58 Temp 36.4 Pulse 96 Resp 20 B/P (MAP) 115/63 (80) Pulse Ox 100 O2 Delivery Room Air HEENT: NCAT Heart: Rhythm Normal Lungs: Clear Abdomen: Gravid Extremities: Normal Reflexes: Normal Cervical Dilatation: 3cm Effacement: 75% Station: -2 Membranes: Intact Heart Rate: 130's Accelerations: Accelerations Present Decelerations: No Decelerations Short Term Variability: Present Senior Care Variability: Average (6-25) Contractions on Admission: < 5 Minutes Apart Intensity: Mild Labs Laboratory Tests Test 04/04/23 16:00 Range/Units White Blood Count 16.0 H 4.3-11.0 10^3/uL Red Blood Count 3.74 L 3.80-5.11 10^6/uL Hemoglobin 11.2 L 11.5-16.0 g/dL Hematocrit 34 L 35-52 % Mean Corpuscular Volume 91 80-99 fL Mean Corpuscular Hemoglobin 30 25-34 pg Mean Corpuscular Hemoglobin Concent 33 32-36 g/dL Red Cell Distribution Width 13.2 10.0-14.5 % Platelet Count 226 130-400 10^3/uL Mean Platelet Volume 10.0 9.0-12.2 fL Immature Granulocyte % (Auto) 0 % Neutrophils (%) (Auto) 83 H 42-75 % Lymphocytes (%) (Auto) 13 12-44 % Monocytes (%) (Auto) 3 0-12 % Eosinophils (%) (Auto) 0 0-10 % Basophils (%) (Auto) 0 0-10 % Neutrophils # (Auto) 13.3 H 1.8-7.8 10^3/uL Lymphocytes # (Auto) 2.0 1.0-4.0 10^3/uL Monocytes # (Auto) 0.5 0.0-1.0 10^3/uL Eosinophils # (Auto) 0.0 0.0-0.3 10^3/uL Basophils # (Auto) 0.0 0.0-0.1 10^3/uL Immature Granulocyte # (Auto) 0.1 0.0-0.1 10^3/uL Neutrophils % (Manual) 81 % Lymphocytes % (Manual) 16 % Monocytes % (Manual) 3 % Eosinophils % (Manual) 0 % Basophils % (Manual) 0 % Band Neutrophils 0 % Blood Morphology Comment NORMAL Urine Color YELLOW Urine Clarity CLEAR Urine pH 6.0 5-9 Urine Specific [place] 1.015 L 1.016-1.022 Urine Protein NEGATIVE NEGATIVE Urine Glucose (UA) NEGATIVE NEGATIVE Urine Ketones 4+ H NEGATIVE Urine Nitrite NEGATIVE NEGATIVE Urine Bilirubin NEGATIVE NEGATIVE Urine Urobilinogen 0.2 < = 1.0 MG/DL Urine Leukocyte Esterase TRACE H NEGATIVE Urine RBC (Auto) NEGATIVE NEGATIVE Urine RBC NONE /HPF Urine WBC 0-2 /HPF Urine Squamous Epithelial Cells 2-5 /HPF Urine Crystals NONE /LPF Urine Bacteria FEW H /HPF Urine Casts NONE /LPF Urine Mucus NEGATIVE /LPF Urine Culture Indicated CULTURE PENDING Sodium Level 137 135-145 MMOL/L Potassium Level 4.0 3.6-5.0 MMOL/L Chloride Level 108 H 98-107 MMOL/L Carbon Dioxide Level 19 L 21-32 MMOL/L Anion Gap 10 5-14 MMOL/L Blood Urea Nitrogen 6 L 7-18 MG/DL Creatinine 0.60 0.60-1.30 MG/DL Estimat Glomerular Filtration Rate 126 BUN/Creatinine Ratio 10 Glucose Level 74 70-105 MG/DL Calcium Level 9.2 8.5-10.1 MG/DL Corrected Calcium 9.7 8.5-10.1 MG/DL Total Bilirubin 0.7 0.1-1.0 MG/DL Aspartate Amino Transf (AST/SGOT) 13 5-34 U/L Alanine Aminotransferase (ALT/SGPT) 9 0-55 U/L Alkaline Phosphatase 136 40-136 U/L Total Protein 6.7 6.4-8.2 GM/DL Albumin 3.4 3.2-4.5 GM/DL OB - Assessment/Plan/Diagnosis Assessment Assessment: other Admission Dx Diagnosis: 27 yo @ 36.5 contractions Acute gastroenteritis GBS neg Admission Status: Observation Plan Plan: Other Other Plan IVF bolus given overnight Ancef x 1 gm given yesterday due to possible UTI on urine dip Will keep on monitoring Zofran prn nausea Recheck tomorrow to determine if PTL ALEXANDRE VELAZQUEZ DO Apr 05, 2023 07:40
== END 2023-04-05 08:15 | disposition home or self-care (01) ==
LOC: WSo 14:49 → LDRP 14:49 → WS 04-05 08:02 → LDRP 04-05 08:02 → WSo 04-05 08:15
PROVIDERS: ATTEND Obstetrics & Gynecology
DX: O62.9 Abnormality of forces of labor, unspecified (principal); Z3A.36 36 weeks gestation of pregnancy
CPT/HCPCS: 80053; 81000; 85007; 85027; 87088; 96360; 96361 ×2; 96375; G0463; 36415; 99213